=== PATIENT | male | born 1960 | race Caucasian/White ===

== ENCOUNTER 2018-06-24 07:46 | Day surgery (SDC) | payer BC ==
[2018-06-20 12:21] VITALS: BMI 25.0
[~2018-06-24 07:46] MED LIST: LACTATED RINGERS 1,000 ML IV SCH; LIDOCAINE 1% 20 ML VIAL (10MG/ML) FOR IV START INTRADERMA PRN
[2018-06-24] MEDS ORDERED: LACTATED RINGERS 1,000 ML IV ONE (07:57)
[2018-06-24 07:58] VITALS: TEMP 98.1
[2018-06-24] MEDS ORDERED: PROPOFOL 10 MG/ML 20 ML VIAL IV ONE (09:27)
--- NOTE | 2018-06-24 09:35 | P.GSHP ---
History of Present Illness H&P Date: 06/24/18 Chief Complaint: Screening colonoscopy This is a 57-year-old male referred from Dr. Abelardo Mclaughlin. Patient presents today for screening colonoscopy. He denies a significant GI complaints. Past Medical History Past Medical History: No Reported History Additional Past Medical History / Comment(s): HX SF BLOOD CLOT LEG FOLLOWING PLANE RIDE 2014. History of Any Multi-Drug Resistant Organisms: None Reported Past Surgical History: Hernia Repair Additional Past Surgical History / Comment(s): COLONOSCOPY. VASECTOMY. Past Anesthesia/Blood Transfusion Reactions: No Reported Reaction Smoking Status: Current every day smoker - Past Family History Mother Family Medical History: Cancer Additional Family Medical History / Comment(s): COLON CA Medications and Allergies Home Medications Medication Instructions Recorded Confirmed Type Dextroamphetamine/Amphetamine 10 mg PO BID 05/29/14 06/20/18 History [Adderall] Allergies Allergy/AdvReac Type Severity Reaction Status Date / Time No Known Allergies Allergy Verified 06/20/18 11:57 Surgical - Exam Vital Signs Temp Pulse Resp BP Pulse Ox 98.1 F 83 18 144/93 97 06/24/18 07:57 06/24/18 07:57 06/24/18 07:57 06/24/18 07:57 06/24/18 07:57 - General well developed, no distress - Eyes PERRL - ENT normal pinna - Neck no masses - Respiratory normal expansion - Cardiovascular Rhythm: regular - Abdomen Abdomen: soft, non tender Assessment and Plan Assessment: We'll perform screening colonoscopy.
[2018-06-24 09:55] VITALS: RESP 16
--- NOTE | 2018-06-24 09:58 | P.OP ---
Date of Procedure: 06/24/18 Preoperative Diagnosis: Screening colonoscopy Postoperative Diagnosis: Diverticulosis Rectal polyp Left colon polyp Right colon polyp Procedure(s) Performed: Colonoscopy Anesthesia: MAC Surgeon: Pillo Sam Pathology: other (Colon polyps) Condition: stable Disposition: PACU Description of Procedure: The patient's placed on the endoscopy table in the lateral position. He received IV sedation. Digital rectal exam was performed which revealed a few external hemorrhoids. The flexible colonoscope was then placed patient anus and passed throughout the entire colon. The ileocecal valve was visualized. The cecum appeared normal. In the ascending colon was a few scattered diverticula. There was a polyp seen this removed the cold forcep. Scope was then withdrawn and there was further diverticula seen in the ascending and transverse colon. in the descending colon there was more diverticula seen. In the left colon there was another polyp seen this removed with a snare. Scope was then brought back the sigmoid colon and there is extensive diverticular changes. Scope is then brought back the rectum and a polyp was seen was removed with snare. Scope was withdrawn for patient.
[2018-06-24 10:17] VITALS: BP 150/97; PULSE 74
== END 2018-06-24 10:34 | disposition home or self-care (01) ==
LOC: ORWHC2ENDO 07:46
PROVIDERS: ATTEND Surgery
DX: Z12.11 Encounter for screening for malignant neoplasm of colon (principal); D12.4 Benign neoplasm of descending colon; D12.2 Benign neoplasm of ascending colon; D12.8 Benign neoplasm of rectum; F17.200 Nicotine dependence, unspecified, uncomplicated; K64.4 Residual hemorrhoidal skin tags; K57.30 Diverticulosis of large intestine without perforation or abscess without bleeding; F98.8 Other specified behavioral and emotional disorders with onset usually occurring in childhood and adolescence; Z79.899 Other long term (current) drug therapy; Z80.0 Family history of malignant neoplasm of digestive organs
CPT/HCPCS: 88305; 45385; 45380; J2704

== ENCOUNTER → 2019-01-09 | Outpatient (CLI) | payer BC ==
--- NOTE | 2019-01-10 08:29 | XR ---
EXAMINATION TYPE: XR chest 2V DATE OF EXAM: 01/09/2019 COMPARISON: NONE HISTORY: Physical exam, F 17.200 TECHNIQUE: Frontal and lateral views of the chest are obtained. FINDINGS: There are prominent lung volumes. Eventration of right hemidiaphragm is noted. Interstitium is mildly increased. The aorta is dense. Biapical pleural thickening is mild. There is flattening of hemidiaphragms. There is no focal air space opacity, pleural effusion, or pneumothorax seen. The ca rdiac silhouette size is within normal limits. The osseous structures are intact. IMPRESSION: No acute cardiopulmonary process. Correlate for COPD. Additional findings above.
== END | disposition home or self-care (01) ==
LOC: RADXRMAIN 16:46
PROVIDERS: ATTEND Family Medicine
DX: J44.9 Chronic obstructive pulmonary disease, unspecified (principal); I77.89 Other specified disorders of arteries and arterioles; J98.6 Disorders of diaphragm; J92.9 Pleural plaque without asbestos; F17.210 Nicotine dependence, cigarettes, uncomplicated
CPT/HCPCS: 71046

== ENCOUNTER → 2022-02-09 | Outpatient (CLI) | payer BC ==
--- NOTE | 2022-02-09 11:37 | XR ---
Abdomen HISTORY: Abdominal pain Frontal view of the abdomen submitted on 2 images, no comparisons Lung bases are clear. There are air-fluid levels without bowel distention. Probable vascular calcific ations present within the pelvis. Bone mineralization is maintained, degenerative disc changes are pr esent in the visualized spine. No evident pneumoperitoneum. There is some retained fecal debris prese nt within the colon. IMPRESSION: Nonspecific findings, correlate for an right wrist, ileus, follow-up as indicated.
== END | disposition home or self-care (01) ==
LOC: RADXRMAIN 10:51
PROVIDERS: ATTEND Family Medicine
DX: R10.32 Left lower quadrant pain (principal)
CPT/HCPCS: 74018

== ENCOUNTER 2022-02-27 03:15 | Emergency (ER) | payer BC ==
[2022-02-27 03:27] VITALS: TEMP 98.1
[2022-02-27] MEDS ORDERED: MORPHINE SULFATE 4 MG/ML SYRINGE IV STA (03:41)
[2022-02-27] MEDS ORDERED: SODIUM CHLORIDE 0.9% 1,000 ML IV STA (03:41)
[2022-02-27] MEDS ORDERED: ONDANSETRON 4 MG/2 ML VIAL IVP STA (03:41)
--- NOTE | 2022-02-27 03:43 | ED ---
Abdominal Pain HPI - General Chief Complaint: Abdominal Pain Stated Complaint: L. Side Pain Time Seen by Provider: 02/27/22 03:29 Source: patient, RN notes reviewed, old records reviewed Mode of arrival: ambulatory Limitations: no limitations - History of Present Illness Initial Comments: This is a 61-year-old male to the emergency department for evaluation presented today for evaluation of multiple complaints here abdominal pain and constipation left lower quadrant abdominal pain. Patient does have history of colonoscopy relatively normal. No significant surgical history no travel history or sick contacts patient is been on about regimen for constipation with adequate success. MD Complaint: abdominal pain -: week(s) Location: LLQ, L flank Radiation: LLQ, L flank Migration to: suprapubic Severity: moderate Severity scale (1-10): 7 Consistency: intermittent, colicky Improves With: nothing Worsens With: nothing Associated Symptoms: nausea Treatments Prior to Arrival: other (0) - Related Data Home Medications Medication Instructions Recorded Confirmed Dextroamphetamine/Amphetamine 10 mg PO BID 05/29/14 06/20/18 [Adderall] Allergies Allergy/AdvReac Type Severity Reaction Status Date / Time No Known Allergies Allergy Verified 02/27/22 03:27 Review of Systems ROS Statement: Those systems with pertinent positive or pertinent negative responses have been documented in the HPI. ROS Other: All systems not noted in ROS Statement are negative. Past Medical History Past Medical History: No Reported History Additional Past Medical History / Comment(s): HX SF BLOOD CLOT LEG FOLLOWING PLANE RIDE 2014. History of Any Multi-Drug Resistant Organisms: None Reported Past Surgical History: Hernia Repair Additional Past Surgical History / Comment(s): COLONOSCOPY. VASECTOMY. Past Anesthesia/Blood Transfusion Reactions: No Reported Reaction Past Psychological History: ADD/ADHD Smoking Status: Never smoker Past Alcohol Use History: Occasional Past Drug Use History: None Reported - Past Family History Mother Family Medical History: Cancer Additional Family Medical History / Comment(s): COLON CA General Exam Limitations: no limitations General appearance: alert, in no apparent distress Head exam: Present: atraumatic, normocephalic, normal inspection Eye exam: Present: normal appearance, PERRL, EOMI. Absent: scleral icterus, conjunctival injection, periorbital swelling ENT exam: Present: normal exam, mucous membranes moist Neck exam: Present: normal inspection. Absent: tenderness, meningismus, lymphadenopathy Respiratory exam: Present: normal lung sounds bilaterally. Absent: respiratory distress, wheezes, rales, rhonchi, stridor Cardiovascular Exam: Present: regular rate, normal rhythm, normal heart sounds. Absent: systolic murmur, diastolic murmur, rubs, gallop, clicks GI/Abdominal exam: Present: soft, normal bowel sounds. Absent: distended, tenderness, guarding, rebound, rigid Extremities exam: Present: normal inspection, full ROM, normal capillary refill. Absent: tenderness, pedal edema, joint swelling, calf tenderness Back exam: Present: normal inspection Neurological exam: Present: alert, oriented X3, CN II-XII intact Psychiatric exam: Present: normal affect, normal mood Skin exam: Present: warm, dry, intact, normal color. Absent: rash Course Vital Signs 02/27/22 02/27/22 03:25 05:04 Temperature 98.1 F Pulse Rate 79 70 Respiratory 18 17 Rate Blood Pressure 162/98 145/93 O2 Sat by Pulse 98 98 Oximetry - Reevaluation(s) Reevaluation #1: 02/27/22 06:45 Medical record is reviewed Reevaluation #2: 02/27/22 06:45 Specific change in symptoms here in the ER Reevaluation #3: 02/27/22 06:45 Patient informed results and questions answered Medical Decision Making - Medical Decision Making 61 male to the emergency department for evaluation of abdominal pain with difficulty with bowel movements. Patient has normal computed tomography scan with no significant fecal retention, will stop all regiment. Patient to continue to follow-up with colonoscopy as an outpatient - Lab Data Result diagrams: 02/27/22 03:59 02/27/22 03:59 Lab Results 02/27/22 02/27/22 02/27/22 Range/Units 03:59 03:59 03:59 WBC 5.4 (3.8-10.6) k/uL RBC 5.31 (4.30-5.90) m/uL Hgb 16.1 (13.0-17.5) gm/dL Hct 46.9 (39.0-53.0) % MCV 88.4 (80.0-100.0) fL MCH 30.3 (25.0-35.0) pg MCHC 34.3 (31.0-37.0) g/dL RDW 12.8 (11.5-15.5) % Plt Count 175 (150-450) k/uL MPV 8.5 Neutrophils % 56 % Lymphocytes % 29 % Monocytes % 5 % Eosinophils % 6 % Basophils % 1 % Neutrophils # 3.0 (1.3-7.7) k/uL Lymphocytes # 1.6 (1.0-4.8) k/uL Monocytes # 0.3 (0-1.0) k/uL Eosinophils # 0.3 (0-0.7) k/uL Basophils # 0.0 (0-0.2) k/uL PT 10.9 (9.0-12.0) sec INR 1.0 (<1.2) APTT 23.1 (22.0-30.0) sec Sodium 137 (137-145) mmol/L Potassium 4.4 (3.5-5.1) mmol/L Chloride 102 (98-107) mmol/L Carbon Dioxide 25 (22-30) mmol/L Anion Gap 10 mmol/L BUN 15 (9-20) mg/dL Creatinine 0.91 (0.66-1.25) mg/dL Est GFR (CKD-EPI)AfAm >90 (>60 ml/min/1.73 sqM) Est GFR (CKD-EPI)NonAf >90 (>60 ml/min/1.73 sqM) Glucose 115 H (74-99) mg/dL Plasma Lactic Acid Arturo (0.7-2.0) mmol/L Calcium 9.4 (8.4-10.2) mg/dL Total Bilirubin 0.6 (0.2-1.3) mg/dL AST 33 (17-59) U/L ALT 33 (4-49) U/L Alkaline Phosphatase 77 (38-126) U/L Total Protein 7.3 (6.3-8.2) g/dL Albumin 4.4 (3.5-5.0) g/dL Amylase 58 (30-110) U/L Lipase 120 (23-300) U/L 02/27/22 Range/Units 03:59 WBC (3.8-10.6) k/uL RBC (4.30-5.90) m/uL Hgb (13.0-17.5) gm/dL Hct (39.0-53.0) % MCV (80.0-100.0) fL MCH (25.0-35.0) pg MCHC (31.0-37.0) g/dL RDW (11.5-15.5) % Plt Count (150-450) k/uL MPV Neutrophils % % Lymphocytes % % Monocytes % % Eosinophils % % Basophils % % Neutrophils # (1.3-7.7) k/uL Lymphocytes # (1.0-4.8) k/uL Monocytes # (0-1.0) k/uL Eosinophils # (0-0.7) k/uL Basophils # (0-0.2) k/uL PT (9.0-12.0) sec INR (<1.2) APTT (22.0-30.0) sec Sodium (137-145) mmol/L Potassium (3.5-5.1) mmol/L Chloride (98-107) mmol/L Carbon Dioxide (22-30) mmol/L Anion Gap mmol/L BUN (9-20) mg/dL Creatinine (0.66-1.25) mg/dL Est GFR (CKD-EPI)AfAm (>60 ml/min/1.73 sqM) Est GFR (CKD-EPI)NonAf (>60 ml/min/1.73 sqM) Glucose (74-99) mg/dL Plasma Lactic Acid Arturo 1.0 (0.7-2.0) mmol/L Calcium (8.4-10.2) mg/dL Total Bilirubin (0.2-1.3) mg/dL AST (17-59) U/L ALT (4-49) U/L Alkaline Phosphatase (38-126) U/L Total Protein (6.3-8.2) g/dL Albumin (3.5-5.0) g/dL Amylase (30-110) U/L Lipase (23-300) U/L - Radiology Data Radiology results: report reviewed (CT of the abdomen and pelvis is negative for acute disease), image reviewed Disposition Clinical Impression: Abdominal pain Disposition: HOME SELF-CARE Condition: Good Instructions (If sedation given, give patient instructions): Abdominal Pain (ED) Is patient prescribed a controlled substance at d/c from ED?: No Referrals: Abelardo Mclaughlin DO [Primary Care Provider] - 1-2 days Time of Disposition: 05:15
[2022-02-27 04:26] LABS: Basophils % (A) 1 %; Eosinophils # (A) 0.3 k/uL (0-0.7); Eosinophils % (A) 6 %; HCT 46.9 % (39.0-53.0); HGB 16.1 gm/dL (13.0-17.5); Lymphocytes # (A) 1.6 k/uL (1.0-4.8); Lymphocytes % (A) 29 %; MCH 30.3 pg (25.0-35.0); MCHC 34.3 g/dL (31.0-37.0); MCV 88.4 fL (80.0-100.0); Mean Platelet Volume 8.5; Monocytes # (A) 0.3 k/uL (0-1.0); Monocytes % (A) 5 %; Neutrophils % (A) 56 %; Platelet Count 175 k/uL (150-450); RBC 5.31 m/uL (4.30-5.90); RDW 12.8 % (11.5-15.5); WBC 5.4 k/uL (3.8-10.6)
[2022-02-27 04:30] LABS: Partial Thromboplastin Time 23.1 sec (22.0-30.0); Prothrombin Time 10.9 sec (9.0-12.0)
[2022-02-27 04:34] LABS: ALT 33 U/L (4-49); AST 33 U/L (17-59); African American GFR (CKD) >90 (>60 ml/min/1.73 sqM); Albumin 4.4 g/dL (3.5-5.0); Alkaline Phosphatase 77 U/L (38-126); Amylase 58 U/L (30-110); Anion Gap 10 mmol/L; Blood Urea Nitrogen 15 mg/dL (9-20); Calcium 9.4 mg/dL (8.4-10.2); Carbon Dioxide 25 mmol/L (22-30); Chloride 102 mmol/L (98-107); Glucose 115 mg/dL (74-99); Lipase 120 U/L (23-300); Non-African American GFR(CKD) >90 (>60 ml/min/1.73 sqM); Potassium 4.4 mmol/L (3.5-5.1); Sodium 137 mmol/L (137-145); Total Bilirubin 0.6 mg/dL (0.2-1.3); Total Protein 7.3 g/dL (6.3-8.2)
[2022-02-27 05:05] VITALS: BP 145/93; PULSE 70; RESP 17
--- NOTE | 2022-02-27 05:15 | CT ---
EXAMINATION TYPE: CT abdomen pelvis w con DATE OF EXAM: 02/27/2022 COMPARISON: None HISTORY: lt side abd pain, dealing w/ constipation x1 month, no BM x5 days. CT DLP: 734.8 mGycm Automated exposure control for dose reduction was used. CONTRAST: Performed with IV Contrast, patient injected with 100 mL of Isovue 300. Images obtained from the diaphragm to the floor the pelvis with IV contrast. Lung bases are clear. No pleural effusion. Heart size is normal. No pericardial effusion. Liver splee n and stomach appear intact. There is 1 cm cyst in the left lobe of the liver. There is no pancreatic mass. Gallbladder is intact. The bowel loops are not dilated. There is no adrenal mass. Kidneys have normal size. No hydronephrosis. Ureters are not dilated. No re troperitoneal adenopathy. There is normal contrast opacification of the kidneys. Delayed images show normal renal excretion. No retroperitoneal adenopathy. The bladder distends smoothly. No inguinal her mihaela. There are sigmoid diverticula. No diverticulitis. Appendix is posterior and appears normal. Ther e is 1 cm cortical cyst medial left kidney. There is no mesenteric edema. No ascites or free air. No sign of a bowel obstruction. The lumbar vert ebra appear intact. There is narrowing at L4-5 disc space with vacuum disc and spur formation. The nikhil ny pelvis is intact. The hip joints are intact. IMPRESSION: Normal appendix. No evidence of acute abdomen and pelvis. No significant fecal retained material.
== END 2022-02-27 05:31 | disposition home or self-care (01) ==
LOC: EC 03:15
DX: R10.32 Left lower quadrant pain (principal)
CPT/HCPCS: 36415; 80053; 82150; 83605; 83690; 85025; 85610; 85730; 74177; 99284; 96374; 96375; 96361; J2270; J2405; Q9967

== ENCOUNTER 2022-03-24 06:49 | Inpatient (IN) | payer BC ==
[2022-03-22 15:42] VITALS: BMI 19.5
[2022-03-24] MEDS ORDERED: LIDOCAINE 2% INJ 20 MG/ML (2 ML VIAL) ONE (07:43)
[2022-03-24] MEDS ORDERED: MIDAZOLAM 2 MG/2 ML VIAL ONE (07:43)
[2022-03-24] MEDS ORDERED: PROPOFOL 10 MG/ML 20 ML VIAL IV ONE (07:43)
[2022-03-24] MEDS ORDERED: fentaNYL (PF) 50 MCG/ML 2 ML AMP ONE (07:43)
--- NOTE | 2022-03-24 08:01 | P.PCN ---
Date of Procedure: 03/24/22 Procedure(s) Performed: Brief history: Patient is a pleasant 61-year-old white male scheduled for an elective upper endoscopy as well as colonoscopy as a part of evaluation of GERD and prior history of colon polyps. His last colonoscopy was 4 years ago. Procedure performed: Esophagogastroduodenoscopy with biopsy Colonoscopy Preoperative diagnosis: GERD History of colon polyps Anesthesia: MAC Procedure: After informed consent was obtained from the patient was brought into the endoscopy unit and IV sedation was administered by anesthesia under continuous monitoring. Initially upper endoscopy was done. The Olympus GF 160 video endoscope was inserted inserted into the mouth and esophagus intubated without any difficulty and was gradually advanced into the stomach and duodenum and carefully examined. The bulb and second part of the duodenum appeared normal. The scope was then withdrawn into the stomach adequately insufflated with air and upon careful examination the antrum had mild diffuse gastritis and biopsies were done from this area. The body, cardia and fundus appeared normal. The scope was then withdrawn into the esophagus. The GE junction was located at 40 cm to the incisors. Small sliding Hiatal hernia noted. There was a short segment of Tim's esophagus extending 3-4 mm proximal to the GE junction which was biopsied. Rest of the esophagus appeared normal. Patient tolerated the procedure well. At this time the patient continued to remain sedation. Initial digital rectal examination was normal. Olympus CF 160 video colonoscope was then inserted into the rectum and gradually advanced to the sigmoid colon the procedure was terminated because of extremely poor prep. Scattered sigmoid diverticula seen. Impression: 1. Upper endoscopy revealed mild antral gastritis, small hiatal hernia and short segment Tim's esophagus. 2. Colonoscopy terminated because of extremely poor prep. Recommendations: Findings of this examination were discussed with the patient as well as his family. He was advised to follow with the biopsy results. He will be rescheduled for a repeat colonoscopy in 2-3 weeks.
[2022-03-24] MEDS ORDERED: HYDROmorphone 0.5 MG/0.5 ML SYRINGE IVP ONE (08:27)
[2022-03-24] MEDS ORDERED: hydrALAZINE HCL 20 MG/ML 1 ML VIAL ONE (08:57)
[2022-03-24] MEDS ORDERED: LACTATED RINGERS 1,000 ML IV ONE (09:15)
[2022-03-24] MEDS ORDERED: IBUPROFEN 800 MG TAB PO PRN (13:52)
[2022-03-24] MEDS ORDERED: ALPRAZolam 0.25 MG TAB PO PRN (13:54)
[2022-03-24] MEDS ORDERED: TEMAZEPAM 15 MG CAP PO PRN (13:54)
[2022-03-24] MEDS ORDERED: RX INFO: IV CONTRAST WAS GIVEN 1 EACH MISC MISCELLANE PRN (13:56)
[2022-03-24] MEDS: HYDROmorphone 0.5 MG/0.5 ML SYRINGE IVP PRN ×2 (14:26→21:04)
[2022-03-24] MEDS: PANTOPRAZOLE 40 MG/10 ML VIAL IVP SCH ×2 (16:22→19:55)
[2022-03-24] MEDS: SODIUM CHLORIDE 0.9% 1,000 ML IV SCH (16:22)
--- NOTE | 2022-03-24 18:41 | CT ---
EXAMINATION TYPE: CT brain wo con DATE OF EXAM: 03/24/2022 COMPARISON: None HISTORY: Headache, weight loss. CT DLP: 1162.8 mGycm Automated exposure control for dose reduction was used. Images of the brain obtained without contrast. Ventricles of normal size. There is no mass effect or midline shift. No sign of intracranial hemorrha ge. Calvarium is intact. The skull base is intact. There is normal aeration of the mastoid sinuses. IMPRESSION: Normal unenhanced head CT scan.
--- NOTE | 2022-03-24 18:49 | CT ---
EXAMINATION TYPE: CT chest w con DATE OF EXAM: 03/24/2022 COMPARISON: None HISTORY: Weight loss and abdomen pain. CT DLP: 223.0 mGycm Automated exposure control for dose reduction was used. CONTRAST: Performed with IV Contrast, patient injected with 100cc mL of Isovue 300. Images obtained from the diaphragm to the thoracic inlet with no contrast. There is diffuse bullous pulmonary emphysema. There is flattening of the diaphragm. Heart size is nor mal. No pericardial effusion. There is some focal pleural thickening measuring 2 cm in the posterior right upper lobe. There are en larged mediastinal multiple lymph nodes and right bronchial lymph nodes that measure up to 2.7 cm. Th oracic aorta is intact. No evidence of dissection. Ascending aorta measures 4 cm. No filling defect seen in the pulmonary arteries. The thoracic spine is intact. No compression fracture. There is mild degenerative spurring in the tho racic spine. The sternum is intact. No rib fracture seen. There is some mild reticular nodular densit y at the right lung apex. There is noncalcified 7 mm nodular density medial right upper lobe near the lung apex. IMPRESSION: Bullous pulmonary emphysema. Mediastinal and right bronchial adenopathy. Tumor should be considered. Nonspecific small noncalcified nodule right upper lobe. Irregular pleural thickening posterior right upper lobe is likely scarring.
--- NOTE | 2022-03-24 19:23 | MR ---
EXAMINATION TYPE: MR lumbar spine wo/w con DATE OF EXAM: 03/24/2022 COMPARISON: HISTORY: Low back pain, weight loss CONTRAST: Standard multiplanar, multisequence MRI departmental protocol images were obtained without contrast a nd with 6.5 mL intravenous Gadavist gadolinium contrast. The lumbar vertebrae have normal alignment. There is degenerative disc space narrowing at L4-5 and L5 -S1. No lumbar compression fracture. No evidence of spinal stenosis. There is developmentally adequat e spinal canal. The lumbar neural foramina are fairly well maintained. There is no lumbar paraspinal mass. No pathologic enhancement. The sacroiliac joints are intact IMPRESSION: Spondylotic changes in the lower lumbar spine. No spinal stenosis. No compression fracture. No eviden ce for metastatic disease.
[2022-03-24] MEDS: HEPARIN SODIUM,PORCINE/PF 5,000 UNIT/0.5 ML SYRINGE SQ SCH (19:56)
--- NOTE | 2022-03-25 00:42 | HP ---
HISTORY AND PHYSICAL CHIEF COMPLAINTS: Severe abdominal pain, back pain and as well as inability to keep food down, nausea and as well as weight loss of about 40 pounds. HISTORY OF PRESENT ILLNESS: This is a 69-year-old gentleman with a past medical history of multiple medical problems including DVT, being followed by Dr. Mclaughlin in the outpatient setting, was not feeling well over the past several weeks. Apparently, the patient is losing weight. The patient unable to keep anything down. The patient was extremely weak and the patient is apparently only up and about 2 hours a day. Because of the pain, he is lying down. The patient is also concerned the fact that his mother had colon cancer and colonoscopy could not be done and finally on direct exploratory laparotomy, the colon cancer spread all over her body and the patient's mother at the young age of 55. Currently, Dr. Pelletier has performed EGD, and colonoscopy could not be completed because of the stool and the patient is being admitted to further evaluation of above- mentioned multiple medical problems and failure of outpatient treatment at this time. There is no history of any fever, rigors, or chills at this time. PAST MEDICAL HISTORY: History of DVT. The rest of the history and chart is reviewed. HOME MEDICATIONS: Reviewed include Motrin. ALLERGIES: None. FAMILY HISTORY: Colon cancer as mentioned earlier. SOCIAL HISTORY: Previous history of smoking. Occasional alcohol intake. REVIEW OF SYSTEM: A 14-point review of systems is negative except as mentioned earlier. PHYSICAL EXAMINATION: VITAL SIGNS: Pulse 76, blood pressure 117/70, respirations 16. HEENT: Conjunctivae normal. Oral mucosa moist. NECK: No JVD. CARDIOVASCULAR: S1, S2. RESPIRATIONS: Clear to auscultation. ABDOMEN: Soft. Mild diffuse discomfort felt. No guarding. No rigidity. No ascites. LEGS: No edema. No swelling. NERVOUS SYSTEM: No focal deficits. SKIN: : No ulcer, rash, bleeding. JOINTS: No active deforming arthropathy. LABS: C-reactive protein is less than 5. Other labs are awaited. ASSESSMENT: 1. Diffuse abdominal pain, back pain and weight loss, rule out metastatic malignancy. 2. Failure of outpatient treatment. 3. Status post incomplete colonoscopy. 4. Family history of early age colon cancer. 5. History of deep venous thrombosis. 6. History of nicotine dependence. 7. History of attention-deficit disorder, attention deficit hyperactivity disorder. 8. Significant weight loss recently. RECOMMENDATIONS AND DISCUSSION: This is a 61-year-old gentleman, has multiple complex medical issues as mentioned earlier. The patient has taken outpatient treatment and has failed outpatient treatment. A colonoscopy also could not be done. This patient requires further evaluation and treatment to avoid further complications and to elucidate underlying pathology, so this can only be done with an inpatient hospitalization on an expedited manner according to my professional opinion. So, this patient requires a full admission lasting for more than 24 hours. Please also note, there is significant weight loss and significant pain and associated morbidity. The patient already had a history of DVT. The patient is at high risk of recurrent DVTs and other complications also. Because of all the above-mentioned issues, I am going to order a full bone scan to rule out the possibility of any METS and also MRI of the back to rule out any possibility of any metastatic malignancy or even severe DJD. Otherwise, symptomatic treatment is ordered. See the chart for details and I have had a detailed discussion with the patient and family. All the questions answered. As mentioned earlier, the young age at which the patient's mother also had a colonoscopy is also notable. We will obtain either a continued consultation with Gastroenterology or Surgery regarding the availability to obtain a full colonoscopy after a thorough preparation. Once again, all these above matters could only be done as an inpatient, so please note that this patient requires a full inpatient admission. If you have any questions, please give me a call. Once again, prognosis guarded. A copy of this dictation is being forwarded to Dr. Mclaughlin, who is the primary physician. [email or web address] / IJN: [id number] /
[2022-03-25] MEDS: HYDROmorphone 0.5 MG/0.5 ML SYRINGE IVP PRN ×2 (03:03→12:54)
[2022-03-25] MEDS: SODIUM CHLORIDE 0.9% 1,000 ML IV SCH ×2 (03:25→17:34)
[2022-03-25] MEDS: HYDROcodone/APAP 5-325MG 1 EACH TAB PO PRN ×2 (08:13→16:49)
[2022-03-25] MEDS: PANTOPRAZOLE 40 MG/10 ML VIAL IVP SCH ×2 (08:14→20:28)
[2022-03-25] MEDS: HEPARIN SODIUM,PORCINE/PF 5,000 UNIT/0.5 ML SYRINGE SQ SCH ×2 (08:15→20:28)
[2022-03-25] MEDS: LACTATED RINGERS 1,000 ML IV SCH (08:19)
[2022-03-25 08:42] LABS: Basophils # (A) 0.05 X 10*3/uL (0.00-0.10); Basophils % (A) 0.9 %; Eosinophils # (A) 0.21 X 10*3/uL (0.04-0.35); Eosinophils % (A) 3.7 %; HCT 40.7 % (39.6-50.0); HGB 13.9 g/dL (13.0-17.0); Immature Grans, Automated 0.2 %; Lymphocytes # (A) 1.88 X 10*3/uL (0.90-5.00); Lymphocytes % (A) 33.4 %; MCHC 34.2 g/dL (32.0-37.0); MCV 87.7 fL (80.0-97.0); Mean Platelet Volume 11.6 fL (9.5-12.2); Monocytes # (A) 0.46 X 10*3/uL (0.20-1.00); Monocytes % (A) 8.2 %; NRBC Per 100 WBC 0 /100 WBCS (0.0-0.0); Neutrophils # (A) 3.02 X 10*3/uL (1.80-7.70); Neutrophils % (A) 53.6 %; Platelet Count 168 X 10*3/uL (140-440); RBC 4.64 X 10*6/uL (4.40-5.60); RDW 12.6 % (11.5-14.5); WBC 5.63 X 10*3/uL (4.50-10.00)
[2022-03-25 08:45] LABS: African American GFR (CKD) 107.2 (60.0-200.0); Albumin 3.5 g/dL (3.8-4.9); Albumin/Globulin Ratio 1.46 (1.60-3.17); Anion Gap 8.3 mmol/L (10.00-18.00); BUN/Creat Ratio 15.89 Ratio (12.00-20.00); Blood Urea Nitrogen 14.3 mg/dL (9.0-27.0); Carbon Dioxide 26.7 mmol/L (20.0-27.5); Globulin 2.4 g/dL (1.6-3.3); Non-African American GFR(CKD) 92.5 (60.0-200.0); Potassium 4.5 mmol/L (3.5-5.5); Total Bilirubin 0.6 mg/dL (0.30-1.20); Total Protein 5.9 g/dL (6.2-8.2)
--- NOTE | 2022-03-25 09:20 | US ---
EXAMINATION TYPE: US abdomen complete DATE OF EXAM: 03/25/2022 COMPARISON: NONE CLINICAL HISTORY: abdominal pain, left flank pain and lower abdomen pain TECHNIQUE: Multiple sonographic images of the abdomen are obtained. FINDINGS: EXAM MEASUREMENTS: Liver Length: 15.3 cm Gallbladder Wall: 0.24 cm CBD: 0.46-0.70 cm Spleen: 8.4 cm Right Kidney: 10.2 x 3.9 x 6.1 cm Left Kidney: 10.4 x 4.2 x 4.1 cm Pancreas: Tail obscured by overlying bowel gas Liver: Small anechoic cyst in left lobe 1.0x 1.1 x 1.1cm. Otherwise unremarkable Gallbladder: wnl Evidence for sonographic Boswell's sign: No CBD: Slightly dilated at louie hepatis, tapering near pancreas to normal limits Spleen: wnl Right Kidney: wnl Left Kidney: Two echogenic foci present inferior pole 3mm and 3mm. Upper IVC: wnl Abd Aorta: Atherosclerotic changes distally. The liver is homogenous. The intrahepatic portion of the IVC and proximal abdominal aorta are within normal limits. There is no evidence of cholelithiasis. The visualized portions of the pancreas are homogenous. The spleen is unremarkable. Kidneys are symmetric and free of hydronephrosis. No gavino l lesions are seen. IMPRESSION: 1. No evidence for acute intra-abdominal process. 2. Nonobstructing left renal calculi.
[2022-03-25 11:37] LABS: Alpha Fetoprotein, Tumor Mkr 2.2 ng/mL (0.00-7.90); Carcinoembryonic Antigen 1.5 ng/mL (0.0-4.9)
--- NOTE | 2022-03-25 12:46 | NM ---
EXAMINATION TYPE: NM bone scan whole body DATE OF EXAM: 03/25/2022 12:15 PM CLINICAL INDICATION:Male, 61 years old with history of lower back pain, weight loss; COMPARISON: CT abdomen pelvis 02/27/2022 TECHNIQUE: Intravenous administration 23.1 mCi Tc 99m MDP followed by multiple scintigraphic images o f the appendicular and axial skeleton. Additionally, small field of view planar anterior and posterio r images of the thorax and abdomen and pelvis were obtained. Images acquired 3.25 hours post injection. FINDINGS: No abnormal uptake is identified within the appendicular or axial skeleton to suggest metastatic dise ase. There is increased uptake within the bilateral shoulder, sternoclavicular, and sacroiliac joints con sistent with degenerative changes. No other photopenic areas or areas of increased activity are ident ified. Physiologic radiotracer activity is demonstrated in the kidneys and bladder. IMPRESSION: Nothing to suggest metastatic disease. No evidence of fracture.
--- NOTE | 2022-03-25 13:11 | P.GSCN ---
History of Present Illness Consult date: 03/25/22 History of present illness: Patient reports feeling L from hollowing, over 1 month ago. He is developed persistent bandlike sensation right upper quadrant to left upper quadrant with burning sensation along the left flank as well. He is also being evaluated for metastatic bone disease. Patient comes strong family history of colon cancer in both parents. Attempted colonoscopy was unsuccessful as patient was able unable to tolerate prep. Reports eating or drinking anything exacerbate similar bandlike pain. He has intolerance to eggs fatty greasy foods. Ultrasound independent review without large gallstones. CT of the abdomen and pelvis reviewed February 2022 with moderate redundant sigmoid colon including hepatic flexures. Questionable internal hernia of the left upper quadrant. This is my independent interpretation. Agree with HIDA scan. Overall clinical suspicion of gallbladder disorder described with chronic cholecystitis. In the interim, advance to full liquid diet for more options of beverages that he may ingest. Cholecystectomy also briefly reviewed. Will need recent cardiac workup on record. Past Medical History Past Medical History: Deep Vein Thrombosis (DVT) Additional Past Medical History / Comment(s): having severe abd pain-has had 20lb wt loss in 2 weeks,freq diarrhea was having constipation, HX SF BLOOD CLOT LEG FOLLOWING PLANE RIDE 2014. History of Any Multi-Drug Resistant Organisms: None Reported Past Surgical History: Hernia Repair Additional Past Surgical History / Comment(s): COLONOSCOPY. VASECTOMY. Past Anesthesia/Blood Transfusion Reactions: No Reported Reaction Past Psychological History: ADD/ADHD Smoking Status: Former smoker Past Alcohol Use History: Occasional Additional Past Alcohol Use History / Comment(s): SMOKES 1/4 PPD (WAS 1 PPD), SINCE 1998,quit smoking July 2021 Past Drug Use History: None Reported - Past Family History Mother Family Medical History: Cancer Additional Family Medical History / Comment(s): COLON CA Medications and Allergies Home Medications Medication Instructions Recorded Confirmed Type Ibuprofen [Motrin] 800 mg PO Q8H PRN 03/22/22 03/24/22 History Allergies Allergy/AdvReac Type Severity Reaction Status Date / Time No Known Allergies Allergy Verified 03/24/22 07:23 Surgical - Exam Vital Signs Temp Pulse Resp BP Pulse Ox 98.6 F 111 H 18 158/102 97 03/24/22 07:10 03/24/22 07:10 03/24/22 07:10 03/24/22 07:10 03/24/22 07:10 Results - Labs 03/25/22 05:24 03/25/22 05:24 Abnormal Lab Results - Last 24 Hours (Table) 03/25/22 Range/Units 05:24 Anion Gap 8.30 L (10.00-18.00) mmol/L Total Protein 5.9 L (6.2-8.2) g/dL Albumin 3.5 L (3.8-4.9) g/dL Albumin/Globulin Ratio 1.46 L (1.60-3.17) g/dL Diabetes panel 03/25/22 Range/Units 05:24 Sodium 139 (135-145) mmol/L Potassium 4.5 (3.5-5.5) mmol/L Chloride 104 (96-109) mmol/L Carbon Dioxide 26.7 (20.0-27.5) mmol/L BUN 14.3 (9.0-27.0) mg/dL Creatinine 0.9 (0.6-1.5) mg/dL Glucose 79 (70-110) mg/dL Calcium 9.0 (8.7-10.3) mg/dL AST 19 (14-35) U/L ALT 24 (10-49) U/L Alkaline Phosphatase 65 (41-126) U/L Total Protein 5.9 L (6.2-8.2) g/dL Albumin 3.5 L (3.8-4.9) g/dL Calcium panel 03/25/22 Range/Units 05:24 Calcium 9.0 (8.7-10.3) mg/dL Albumin 3.5 L (3.8-4.9) g/dL Pituitary panel 03/25/22 Range/Units 05:24 Sodium 139 (135-145) mmol/L Potassium 4.5 (3.5-5.5) mmol/L Chloride 104 (96-109) mmol/L Carbon Dioxide 26.7 (20.0-27.5) mmol/L BUN 14.3 (9.0-27.0) mg/dL Creatinine 0.9 (0.6-1.5) mg/dL Glucose 79 (70-110) mg/dL Calcium 9.0 (8.7-10.3) mg/dL Adrenal panel 03/25/22 Range/Units 05:24 Sodium 139 (135-145) mmol/L Potassium 4.5 (3.5-5.5) mmol/L Chloride 104 (96-109) mmol/L Carbon Dioxide 26.7 (20.0-27.5) mmol/L BUN 14.3 (9.0-27.0) mg/dL Creatinine 0.9 (0.6-1.5) mg/dL Glucose 79 (70-110) mg/dL Calcium 9.0 (8.7-10.3) mg/dL Total Bilirubin 0.60 (0.30-1.20) mg/dL AST 19 (14-35) U/L ALT 24 (10-49) U/L Alkaline Phosphatase 65 (41-126) U/L Total Protein 5.9 L (6.2-8.2) g/dL Albumin 3.5 L (3.8-4.9) g/dL
[2022-03-26] MEDS: HYDROmorphone 0.5 MG/0.5 ML SYRINGE IVP PRN ×4 (03:43→22:35)
--- NOTE | 2022-03-26 04:55 | PN ---
PROGRESS NOTE DATE OF SERVICE: 03/25/2022 SUBJECTIVE: This 61-year-old gentleman admitted with weight loss and severe back pain, is being closely monitored at this time. CAT scan of the chest showed multiple mediastinal lymphadenopathy. Pulmonary consultation has been sought. Surgery has also seen the patient and recommended HIDA scan for possible chronic cholecystitis, and bone scan showed no evidence of an obvious abnormality. There has been no chest pain or palpitation. PHYSICAL EXAM: VITAL SIGNS: Pulse 74, blood pressure 119/70, respirations 16. CHEST: Clear to auscultation. ABDOMEN: Soft. NERVOUS SYSTEM: Nonfocal. LABORATORY DATA: Reviewed. AFP is normal and CEA is also normal. ASSESSMENT: 1. Diffuse abdominal pain and weight loss. Rule out metastatic malignancy. 2. Failure of outpatient treatment. 3. Status post incomplete colonoscopy. 4. Mediastinal adenopathy. 5. Family history of early age colon cancer. 6. Possible chronic cholecystitis. 7. History of deep venous thrombosis. 8. History of nicotine dependence. 9. History of attention-deficit disorder, attention-deficit hyperactivity disorder. 10.Significant weight loss recently. RECOMMENDATIONS: I recommend to continue medications and symptomatic treatment. Otherwise, I would recommend consultation with Dr. Mcmullen regarding the high concern of malignancy. Dr. Goff also will be consulted for possible evaluation for possible lymphadenopathy. Prognosis guarded. Further recommendations to follow. See orders for details. MMODL / IJN: [id number] /
[2022-03-26] MEDS: PANTOPRAZOLE 40 MG/10 ML VIAL IVP SCH ×2 (08:29→20:07)
[2022-03-26] MEDS: HEPARIN SODIUM,PORCINE/PF 5,000 UNIT/0.5 ML SYRINGE SQ SCH ×2 (08:29→20:06)
[2022-03-26] MEDS: SODIUM CHLORIDE 0.9% 1,000 ML IV SCH ×2 (08:34→20:07)
[2022-03-26] MEDS: LACTATED RINGERS 1,000 ML IV SCH (08:34)
[2022-03-26 09:01] LABS: Basophils # (A) 0.06 X 10*3/uL (0.00-0.10); Basophils % (A) 1.2 %; Eosinophils # (A) 0.26 X 10*3/uL (0.04-0.35); HGB 13.8 g/dL (13.0-17.0); Immature Grans, Automated 0.2 %; Lymphocytes % (A) 34.8 %; MCHC 34.5 g/dL (32.0-37.0); Mean Platelet Volume 11.6 fL (9.5-12.2); Monocytes # (A) 0.42 X 10*3/uL (0.20-1.00); Monocytes % (A) 8.1 %; NRBC Per 100 WBC 0 /100 WBCS (0.0-0.0); Neutrophils # (A) 2.62 X 10*3/uL (1.80-7.70); Neutrophils % (A) 50.7 %; Platelet Count 168 X 10*3/uL (140-440); RDW 12.4 % (11.5-14.5); WBC 5.17 X 10*3/uL (4.50-10.00)
[2022-03-26 09:24] LABS: Amorphous Sediment,Urine Moderate /hpf; Appearance,Urine Cloudy (Clear); Bacteria,Urine Rare /hpf; Bilirubin,Urine Negative (Negative); Blood,Urine Negative (Negative); Color,Urine Yellow; Glucose,Urine (UA) Negative (Negative); Ketones,Urine Negative (Negative); Leukocyte Esterase,Urine Negative (Negative); Mucus,Urine Moderate /hpf; Nitrite,Urine Negative (Negative); Protein,Urine Negative (Negative); RBC,Urine 1 /hpf (0-5); Specific Gravity,Urine 1.014 (1.001-1.035); Urobilinogen,Urine <2.0 mg/dL (<2.0); WBC,Urine 3 /hpf (0-5)
[2022-03-26 10:21] LABS: African American GFR (CKD) 107.7 (60.0-200.0); Anion Gap 9.3 mmol/L (10.00-18.00); BUN/Creat Ratio 11.22 Ratio (12.00-20.00); Calcium 9.2 mg/dL (8.7-10.3); Carbon Dioxide 26.2 mmol/L (20.0-27.5); Non-African American GFR(CKD) 92.9 (60.0-200.0); Potassium 4.5 mmol/L (3.5-5.5)
--- NOTE | 2022-03-26 14:07 | P.PN ---
Subjective Progress Note Date: 03/26/22 Overview of the patient's symptoms and clinical findings described. Patient confirms worsening abdominal pain after eating dairy foods or fat containing foods. He is tolerating tomato soup including Mountain Dew. Pain bandlike sensation in upper abdomen. HIDA scan pending. 12-lead EKG obtained with echo for 3 surgical management. Clinical findings consistent with cholecystitis. Tentative cholecystectomy scheduled for tomorrow pending cardiac risk assessment with EKG and and ECHO Objective - Vital Signs Vital signs: Vital Signs Temp 97.7 F 03/26/22 07:30 Pulse 73 03/26/22 08:00 Resp 16 03/26/22 08:00 BP 117/75 03/26/22 07:30 Pulse Ox 97 03/26/22 07:30 FiO2 Intake & Output 03/25/22 03/26/22 03/26/22 18:59 06:59 18:59 Other: Voiding Method Toilet Toilet Toilet # Voids 3 2 - Labs CBC & Chem 7: 03/26/22 06:25 03/26/22 06:25 Labs: Abnormal Lab Results - Last 24 Hours (Table) 03/26/22 03/26/22 Range/Units 06:25 08:35 Anion Gap 9.30 L (10.00-18.00) mmol/L BUN/Creatinine Ratio 11.22 L (12.00-20.00) Ratio Amorphous Sediment Moderate H (None) /hpf Urine Bacteria Rare H (None) /hpf Urine Mucus Moderate H (None) /hpf
--- NOTE | 2022-03-26 14:45 | P.PN ---
Subjective Progress Note Date: 03/26/22 03/26/2022 This is a 61 year old male who was admitted with uncontrolled pain and abdominal pain and being closely monitored. Patient reports to continued pain with weight loss and no real appetite over the last month and getting worse over the last 2 weeks. General surgery following as patient was to undergo colonoscopy with GI although unable to tolerate the bowel prep. Multiple testings ordered and surgery suggesting hida scan to evaluate the gall bladder. Pulmonary consulted for lung findings on CT. Patient is afebrile and tolerating current diet. Will continue to monitor closely and await hida scan. No reports of shortness of breath or chest pains noted. Encouraged increased activity as tolerated. Review of systems: Constitutional: reports of fatigue, no fever, or chills Cardiovascular: No reports of chest pain or palpitations Respiratory: no reports of shortness of breath and cough GI: no reports of nausea, no vomiting, or diarrhea, reports slightly improved appetite : No reports of dysuria or retention Neurovascular: reports of generalized weakness and overall body aches and pain All medications have been reviewed PHYSICAL EXAMINATION: GENERAL: The patient is alert and oriented x4, thin, ill appearing HEENT: Pupils are round and equally reacting to light. EOMI. no scleral icterus. No conjunctival pallor. Normocephalic, atraumatic. No pharyngeal erythema. No thyromegaly. CARDIOVASCULAR: S1 and S2 muffled PULMONARY: diminished breath sounds bilaterally with some scattered rhonchi noted. ABDOMEN: soft. mildly tender. non-distended, normoactive bowel sounds. No palpable organomegaly. MUSCULOSKELETAL: No joint swelling or deformity. EXTREMITIES: No cyanosis, clubbing, or pedal edema. muscle wasting noted NEUROLOGICAL: Gross neurological examination did not reveal any focal deficits. diffuse weakness SKIN: No rashes. Assessment: Diffuse abdominal pain and weight loss, rule out malignancy Failure of outpatient treatment Status post incomplete colonoscopy Mediastinal adenopathy Family history of early age colon cancer Possible chronic cholecystitis History of DVT HIstory of nicotine dependence HIstory of ADHD, ADD Significant weight loss recently GI prophylaxis DVT prophylaxis Full code Plan: Recommend to continue with current medications and management with surgery following. Patient recently underwent outpatient testing and was scheduled to undergo colonoscopy with GI although unable to do prep. Surgery following due to no GI coverage and to order hida scan which is pending. PUlmonary on consult as well for lung findings on chest cT. Patient to continue with current diet and increased activity as tolerated. Recommend repeat labs including amylase and lipase. Due to multiple complex medical issues, prognosis is guarded. The impression and plan of care has been dictated as a scribe by Radha Ramos, nurse practitioner as directed. Dr. Carlo MD I have performed a history and examination and MDM of this patient, discussed the same with the dictator, and will be documented as a scribe. Based on total visit time, I have performed more than 50% of the visit. Any additional findings or plans will be noted. Objective - Vital Signs Vital signs: Vital Signs Temp 97.7 F 03/26/22 07:30 Pulse 73 03/26/22 08:00 Resp 16 03/26/22 08:00 BP 117/75 03/26/22 07:30 Pulse Ox 97 03/26/22 07:30 FiO2 Intake & Output 03/25/22 03/26/22 03/26/22 18:59 06:59 18:59 Other: Voiding Method Toilet Toilet Toilet # Voids 3 2 - Labs CBC & Chem 7: 03/26/22 06:25 03/26/22 06:25 Labs: Abnormal Lab Results - Last 24 Hours (Table) 03/26/22 03/26/22 Range/Units 06:25 08:35 Anion Gap 9.30 L (10.00-18.00) mmol/L BUN/Creatinine Ratio 11.22 L (12.00-20.00) Ratio Amorphous Sediment Moderate H (None) /hpf Urine Bacteria Rare H (None) /hpf Urine Mucus Moderate H (None) /hpf
--- NOTE | 2022-03-26 16:25 | P.CONS ---
History of Present Illness - Reason for Consult Consult date: 03/26/22 malignancy Requesting physician: Pieter Matos - Chief Complaint intractable N/V, weakness, weight loss - History of Present Illness Mr. Butler is a very pleasant 61 yo male with multiple comorbidities including FH of metastatic colon cancer in his mother who is here after having EGD/colonoscopy for intractable nausea, vomiting, weight loss and weakness. He was following up with GI for nausea and vomiting as well as weight loss. EGD/colonoscopy was completed on 03/24/22. He was not able to tolerate prep well. Endoscopy showed gastritis, and poor prep, stomach biopsy obtained, pending. Admitted due to persistent symptoms without known etiology. He has been having abdominal pain, severe, for the past month, associated with nausea. He has had weight loss as he's not able to eat due to the nausea and pain. He eats a few bites and his symptoms worsen. Work up so far includes CT head which was negative, CT chest with mediastinal and right bronchial LAD concerning for tumor and RUL scarring, MRI L spine and bone scan negative for malignancy, and Abd US negative. CBC and CMP normal. States his mother had colon cancer that was found, metastatic on presentation when she went for surgery with diffuse abdominal metastases. She lived with this and was on treatment for about 4 years before passing. Surgery on board. We were consulted for concerns of pos sible malignancy. HIDA scan ordered for tomorrow with the thought that maybe his symptoms are due to gallbladder disease. Past Medical History Past Medical History: Deep Vein Thrombosis (DVT) Additional Past Medical History / Comment(s): having severe abd pain-has had 20lb wt loss in 2 weeks,freq diarrhea was having constipation, HX SF BLOOD CLOT LEG FOLLOWING PLANE RIDE 2014. History of Any Multi-Drug Resistant Organisms: None Reported Past Surgical History: Hernia Repair Additional Past Surgical History / Comment(s): COLONOSCOPY. VASECTOMY. Past Anesthesia/Blood Transfusion Reactions: No Reported Reaction Past Psychological History: ADD/ADHD Smoking Status: Former smoker Past Alcohol Use History: Occasional Additional Past Alcohol Use History / Comment(s): SMOKES 1/4 PPD (WAS 1 PPD), SINCE 1998,quit smoking July 2021 Past Drug Use History: None Reported - Past Family History Mother Family Medical History: Cancer Additional Family Medical History / Comment(s): COLON CA Medications and Allergies Home Medications Medication Instructions Recorded Confirmed Type Ibuprofen [Motrin] 800 mg PO Q8H PRN 03/22/22 03/24/22 History Allergies Allergy/AdvReac Type Severity Reaction Status Date / Time No Known Allergies Allergy Verified 03/24/22 07:23 Physical Exam Vitals: Vital Signs Temp Pulse Resp BP Pulse Ox 03/25/22 15:00 98.4 F 70 16 156/84 97 03/25/22 14:00 74 16 03/25/22 08:00 74 16 03/25/22 07:20 98.3 F 74 16 119/75 97 03/25/22 02:01 64 16 03/25/22 01:51 98.1 F 71 17 122/79 97 03/24/22 20:06 98.4 F 72 16 130/83 96 03/24/22 19:55 64 16 Intake and Output 03/25/22 03/25/22 03/25/22 06:59 14:59 22:59 Other: Voiding Method Toilet Toilet # Voids 1 3 Gen.: No acute distress. HEENT: Mucosa moist. Lungs: No respiratory distress. Heart: Regular rate. Abdomen: Soft, currently nontender on the right side however he does have some tenderness in the left side. No palpable masses or organomegaly. Neuro: Alert and oriented 3. Skin: No jaundice. Psych: Appropriate affect. Results CBC & Chem 7: 03/26/22 06:25 03/26/22 06:25 Labs: Abnormal Lab Results - Last 24 Hours (Table) 03/25/22 Range/Units 05:24 Anion Gap 8.30 L (10.00-18.00) mmol/L Total Protein 5.9 L (6.2-8.2) g/dL Albumin 3.5 L (3.8-4.9) g/dL Albumin/Globulin Ratio 1.46 L (1.60-3.17) g/dL CT scan - chest: report reviewed CT Scan - head: report reviewed US - abdomen: report reviewed Assessment and Plan Assessment: 1. Intractable nausea and vomiting 2. Unexplained weight loss 3. Mediastinal LAD 4. gastritis Plan: Mr. Butler is a very pleasant 61 yo male with recent onset weight loss, intractable N/V, and EGD overall unrevealing. Colonoscopy obtained, poor prep. FH of colon cancer found in his mother via laparoscopy with diffuse met's seen on presentation after failing to tolerate colonoscopy. Work up with mediastinal LAD concerning for possible malignancy. Patient states he has had multiple scans which revealed a lung nodule however no obvious source of his abdominal pain. I did not see a CT of the abdomen and pelvis done currently however he mentions possibly having this done in the past. It CT of the abdomen pelvis has not been done, he would benefit from this. Agree with outpatient PET scan for his lung nodule however this will also better characterize his abdominal complaints if continued workup remains unremarkable. Agree with HIDA scan as per surgery recommendations. Agree for outpatient biopsy of his mass by natalie carbajal as planned. Discussed with pt and he is agreeable to the plan. All questions answered.
--- NOTE | 2022-03-26 16:28 | P.CNPUL ---
History of Present Illness Consult date: 03/26/22 Requesting physician: Pieter Matos Reason for consult: other (Abnormal CT of the chest) Chief complaint: Chronic abdominal pain History of present illness: This is a 61-year-old white male with one month history of abdominal pain. Patient describes the pain as a bandlike sensation right upper quadrant and left upper quadrant with burning sensation along the left flank. Patient had extensive workup for his abdominal pain, and so far the workup has been negative for malignancy. Patient also describes significant intolerance to certain foods, CT of the abdomen and pelvis showed moderate redundant sigmoid colon including hepatic hepatic flexures, questionable internal hernia of the left u pper quadrant. HIDA scan is pending. During the workup the patient had a CT of the chest clearly showed COPD, there is also evidence of mediastinal and right bronchial adenopathy with nonspecific findings of a small noncalcified nodule in the right upper lobe/irregular pleural thickening/posterior right upper lobe. Likely scarring. However considering the abnormality in the mediastinum, this c onsult was initiated. Patient has no active pulmonary symptoms today. I did recommend that the patient may eventually need a PET scan on outpatient basis, and if that area is abnormal on the PET scan, may have to be considered for EBUS bronchoscopy pulmonary-[place], the patient has no active pulmonary symptoms whatsoever Review of Systems Constitutional: Weight loss no fever no chills HEENT: Negative Pulmonary: Negative Cardiac: Negative GI: Chronic abdominal pain Genitourinary: Negative Muscular skeletal: Negative Psychiatric: Negative Hematologic: Negative Endocrine: Negative Skin: Negative Past Medical History Past Medical History: Deep Vein Thrombosis (DVT) Additional Past Medical History / Comment(s): having severe abd pain-has had 20lb wt loss in 2 weeks,freq diarrhea was having constipation, HX SF BLOOD CLOT LEG FOLLOWING PLANE RIDE 2014. History of Any Multi-Drug Resistant Organisms: None Reported Past Surgical History: Hernia Repair Additional Past Surgical History / Comment(s): COLONOSCOPY. VASECTOMY. Past Anesthesia/Blood Transfusion Reactions: No Reported Reaction Past Psychological History: ADD/ADHD Smoking Status: Former smoker Past Alcohol Use History: Occasional Additional Past Alcohol Use History / Comment(s): SMOKES 1/4 PPD (WAS 1 PPD), SINCE 1998,quit smoking July 2021 Past Drug Use History: None Reported - Past Family History Mother Family Medical History: Cancer Additional Family Medical History / Comment(s): COLON CA Medications and Allergies Home Medications Medication Instructions Recorded Confirmed Type Ibuprofen [Motrin] 800 mg PO Q8H PRN 03/22/22 03/24/22 History Allergies Allergy/AdvReac Type Severity Reaction Status Date / Time No Known Allergies Allergy Verified 03/24/22 07:23 Physical Exam Vitals: Vital Signs Temp Pulse Resp BP Pulse Ox 03/26/22 15:00 98.6 F 71 16 155/88 98 03/26/22 14:00 73 16 03/26/22 08:00 73 16 03/26/22 07:30 97.7 F 73 16 117/75 97 03/26/22 03:37 98.2 F 79 17 156/97 97 03/26/22 01:36 70 16 03/25/22 20:28 70 16 03/25/22 20:24 98.2 F 66 17 151/79 96 Intake and Output 03/26/22 03/26/22 03/26/22 06:59 14:59 22:59 Other: Voiding Method Toilet Toilet # Voids 2 3 Physical Exam: Revealed a 61-year-old white male in no distress Head: Atraumatic normocephalic HEENT:[Neck is supple.] [No neck masses.] [No thyromegaly.] [No JVD.] Chest: [Clear throughout, no crackles, no rhonchi, no wheezes.] Cardiac Exam: [Normal S1 and S2, no S3 gallop, no murmur.] Abdomen: [Soft, nontender, no megaly, no rebound, no guarding, normal bowel sounds.] Extremities: [No clubbing, no edema, no cyanosis.] Neurological Exam: [No focal neurologic deficit.] Alert oriented 3 Psychiatric: Normal mood affect and normal mental status examination. Skin: No rashes Results - Laboratory Findings CBC and BMP: 03/26/22 06:25 03/26/22 06:25 Abnormal lab findings: Abnormal Labs 03/25/22 03/26/22 03/26/22 05:24 06:25 08:35 Anion Gap 8.30 L 9.30 L BUN/Creatinine Ratio 11.22 L Total Protein 5.9 L Albumin 3.5 L Albumin/Globulin Ratio 1.46 L Amorphous Sediment Moderate H Urine Bacteria Rare H Urine Mucus Moderate H - Diagnostic Findings CT scan - chest: image reviewed (As noted in HPI abnormal mediastinal adenopathy, suspicious.) Assessment and Plan Assessment: Impression: Chronic abdominal pain, exact etiology is not clear, being addressed by surgery and gastroenterology on the case. Abnormal CT of the chest, strongly recommend close follow-up patient will need outpatient PET scan post discharge Needs to follow-up with Dr. Kirkland for EBUS bronchoscopy to be done on outpatient basis Tobacco dependence syndrome Possible chronic cholecystitis Family history of colon cancer Recommendation: Continue present treatment and workup plan We will definitely need outpatient follow-up with our office Needs a PET scan outpatient basis Possible EBUS bronchoscopy based on the PET scan findings We'll continue to follow Time with Patient: Greater than 30
[2022-03-27] MEDS: HYDROmorphone 0.5 MG/0.5 ML SYRINGE IVP PRN ×3 (05:00→21:20)
--- NOTE | 2022-03-27 08:33 | P.PN ---
Subjective Progress Note Date: 03/27/22 This is a 61-year-old white male with one month history of abdominal pain. Patient describes the pain as a bandlike sensation right upper quadrant and left upper quadrant with burning sensation along the left flank. Patient had extensive workup for his abdominal pain, and so far the workup has been negative for malignancy. Patient also describes significant intolerance to certain foods, CT of the abdomen and pelvis showed moderate redundant sigmoid colon including hepatic hepatic flexures, questionable internal hernia of the left upper quadrant. HIDA scan is pending. During the workup the patient had a CT of the chest clearly showed COPD, there is also evidence of mediastinal and right bronchial adenopathy with nonspecific findings of a small noncalcified nodule in the right upper lobe/irregular pleural thickening/posterior right upper lobe. Likely scarring. However considering the abnormality in the mediastinum, this consult was initiated. Patient has no active pulmonary symptoms today. I did recommend that the patient may eventually need a PET scan on outpatient basis, and if that area is abnormal on the PET scan, may have to be considered for EBUS bronchoscopy pulmonary[place], the patient has no active pulmonary symptoms whatsoever The patient is seen today 03/27/2022 in follow-up on the regular medical floor. He is currently resting comfortably in bed. Awake and alert in no acute distress. No shortness of breath, cough or congestion. Maintaining O2 saturations in the 90s on room air. He still having ongoing issues with abdominal discomfort. Plan is for possible cholecystectomy today per surgical services. No new labs today. Continued on cefazolin. Heparin for DVT prophylaxis. 0.9 normal saying at 75 ML's per hour. Objective - Vital Signs Vital signs: Vital Signs Temp 98.4 F 03/27/22 02:33 Pulse 74 03/27/22 02:33 Resp 17 03/27/22 02:33 BP 125/86 03/27/22 02:33 Pulse Ox 97 03/27/22 02:33 FiO2 Intake & Output 03/26/22 03/27/22 03/27/22 18:59 06:59 18:59 Other: Voiding Method Toilet Toilet # Voids 3 2 - Exam GENERAL EXAM: Alert, pleasant 61-year-old male patient on room air, comfortable in no apparent distress. HEAD: Normocephalic. EYES: Normal reaction of pupils, equal size. NOSE: Clear with pink turbinates. THROAT: No erythema or exudates. NECK: No masses, no JVD. CHEST: No chest wall deformity. LUNGS: Equal air entry with no crackles, wheeze, rhonchi or dullness. CVS: S1 and S2 normal with no audible murmur, regular rhythm. ABDOMEN: Tender to palpation. No hepatosplenomegaly, normal bowel sounds, no guarding or rigidity. SPINE: No scoliosis or deformity SKIN: No rashes CENTRAL NERVOUS SYSTEM: No focal deficits, tone is normal in all 4 extremities. EXTREMITIES: There is no peripheral edema. No clubbing, no cyanosis. Peripheral pulses are intact. - Labs CBC & Chem 7: 03/26/22 06:25 03/26/22 06:25 Labs: Abnormal Lab Results - Last 24 Hours (Table) 03/26/22 03/26/22 Range/Units 06:25 08:35 Anion Gap 9.30 L (10.00-18.00) mmol/L BUN/Creatinine Ratio 11.22 L (12.00-20.00) Ratio Amorphous Sediment Moderate H (None) /hpf Urine Bacteria Rare H (None) /hpf Urine Mucus Moderate H (None) /hpf Assessment and Plan Assessment: Chronic abdominal pain, exact etiology is not clear, being addressed by surgery and gastroenterology on the case. Plan is for cholecystectomy today. Abnormal CT of the chest, strongly recommend close follow-up patient will need outpatient PET scan post discharge Tobacco dependence syndrome Possible chronic cholecystitis Family history of colon cancer Plan: The patient was seen and evaluated Stable and on room air Plan is for possible surgical intervention today, cholecystectomy He will need a follow-up in the office for PET scan and EBUS bronchoscopy We'll continue to follow I have personally seen and examined the patient, performed the documentation and the assessment and plan as written. Number of minutes spent on the visit: 10.
[2022-03-27 09:01] LABS: Basophils # (A) 0.05 X 10*3/uL (0.00-0.10); Eosinophils # (A) 0.33 X 10*3/uL (0.04-0.35); Eosinophils % (A) 6.6 %; HCT 41.5 % (39.6-50.0); HGB 14.4 g/dL (13.0-17.0); Immature Grans, Automated 0.2 %; Lymphocytes # (A) 1.65 X 10*3/uL (0.90-5.00); Lymphocytes % (A) 33.1 %; MCH 30.9 pg (27.0-32.0); MCHC 34.7 g/dL (32.0-37.0); MCV 89.1 fL (80.0-97.0); Mean Platelet Volume 12.4 fL (9.5-12.2); NRBC Per 100 WBC 0 /100 WBCS (0.0-0.0); Neutrophils # (A) 2.45 X 10*3/uL (1.80-7.70); Neutrophils % (A) 49.1 %; Platelet Count 177 X 10*3/uL (140-440); RBC 4.66 X 10*6/uL (4.40-5.60); RDW 12.6 % (11.5-14.5); WBC 4.99 X 10*3/uL (4.50-10.00)
[2022-03-27] MEDS: PANTOPRAZOLE 40 MG/10 ML VIAL IVP SCH ×2 (09:10→20:30)
[2022-03-27] MEDS: HEPARIN SODIUM,PORCINE/PF 5,000 UNIT/0.5 ML SYRINGE SQ SCH ×3 (09:10→20:30)
[2022-03-27 09:12] LABS: African American GFR (CKD) 112.5 (60.0-200.0); Anion Gap 7.2 mmol/L (10.00-18.00); Blood Urea Nitrogen 8.8 mg/dL (9.0-27.0); Calcium 9.3 mg/dL (8.7-10.3); Carbon Dioxide 28.8 mmol/L (20.0-27.5); Non-African American GFR(CKD) 97.1 (60.0-200.0); Potassium 4.2 mmol/L (3.5-5.5)
[2022-03-27] MEDS: SODIUM CHLORIDE 0.9% 1,000 ML IV SCH ×2 (09:17→20:34)
--- NOTE | 2022-03-27 10:40 | P.PN ---
Progress Note - Text Spoke to nurse practitioner/Michelle JOHNSON Surgical team canceling cardio consult
[2022-03-27] MEDS ORDERED: DEXAMETHASONE SOD PHOSPHATE 4 MG/ML 1 ML VIAL IV ONE (12:25)
[2022-03-27] MEDS ORDERED: ONDANSETRON 4 MG/2 ML VIAL IVP ONE ×2 (12:25→15:16)
--- NOTE | 2022-03-27 12:50 | NM ---
Nuclear medicine hepatobiliary scan. HISTORY: Pain. DOSAGE: The patient received 8 ounces of Ensure Plus and 5.3 mCi of Technetium 99m Choletec. FINDINGS: There is normal hepatic extraction. The gallbladder is seen by 30 minutes. There is bilia ry to bowel clearance by 45 minutes. Ejection fraction is 7%. IMPRESSION: 1. Abnormal ejection fraction 7% correlate for biliary dyskinesia.
[2022-03-27] MEDS ORDERED: ACETAMINOPHEN TAB 500 MG TAB ONE (14:43)
--- NOTE | 2022-03-27 14:47 | CA ---
Transthoracic Echo Report Name: Atif Butler Age: 61 Gender: M : 1960 Exam Date: 03/27/2022 09:29 Exam Location: [facility] Ht (in): 71 Wt (lb): 143 Ordering Physician: Yamilka Ugalde MD Attending/Referring Phys: Tram DONIS Broadcast Journalist Jasmin Tijerina RDCS Procedure CPT: Indications: Chest Pain Cardiac Hx: Technical Quality: Fair/ No parasternal views Contrast 1: Total Dose (mL): Contrast 2: Total Dose (mL): MEASUREMENTS (Male / Female) Normal Values 2D ECHO LV Diastolic Diameter PLAX 3.8 cm 4.2 - 5.9 / 3.9 - 5.3 cm LV Systolic Diameter PLAX 2.8 cm IVS Diastolic Thickness 1.2 cm 0.6 - 1.0 / 0.6 - 0.9 cm LVPW Diastolic Thickness 1.1 cm 0.6 - 1.0 / 0.6 - 0.9 cm LV Relative Wall Thickness 0.6 LA Volume 24.3 cm??? 18 - 58 / 22 - 52 cm??? DOPPLER AV Peak Velocity 111.0 cm/s AV Peak Gradient 4.9 mmHg AV Mean Velocity 77.7 cm/s AV Mean Gradient 2.8 mmHg AV Velocity Time Integral 21.0 cm LVOT Peak Velocity 84.6 cm/s LVOT Peak Gradient 2.9 mmHg LVOT Velocity Time Integral 15.4 cm MV Area PHT 3.3 cm??? Mitral E Point Velocity 55.8 cm/s Mitral A Point Velocity 63.7 cm/s Mitral E to A Ratio 0.9 MV Deceleration Time 230.4 ms MV E' Velocity 8.7 cm/s Mitral E to MV E' Ratio 6.4 TR Peak Velocity 187.0 cm/s TR Peak Gradient 14.0 mmHg Right Ventricular Systolic Press 19.0 mmHg FINDINGS Left Ventricle Mildly increased left ventricular wall thickness. Normal left ventricular systolic function with no obvious regional wall motion abnormalities. Left ventricular ejection fraction is estimated at 55-60 %. Right Ventricle Normal right ventricular size and function. Right ventricular systolic pressure within normal limits. Right Atrium Normal right atrial size. Left Atrium Normal left atrial size. Mitral Valve Structurally normal mitral valve. No evidence for mitral valve prolapse. No mitral stenosis. Trace to mild mitral regurgitation. Aortic Valve No aortic valve stenosis or regurgitation. Tricuspid Valve Mild tricuspid regurgitation. Pulmonic Valve Structurally normal pulmonic valve. Trace pulmonic regurgitation. Pericardium No pericardial effusion. Aorta Aortic root and proximal ascending aorta not well visualized. CONCLUSIONS Mild LVH with preserved systolic function Previewed by: Dr. Wang Waters MD (Electronically Signed) Final Date: 27 March 2022 14:47
[2022-03-27] MEDS ORDERED: INDOCYANINE GREEN 25 MG VIAL IV STA (14:48)
--- NOTE | 2022-03-27 14:48 | P.PN ---
Subjective Progress Note Date: 03/27/22 CHIEF COMPLAINT: Abdominal pain HISTORY OF PRESENT ILLNESS: The patient is a 61-year-old male presents with history of persistent abdominal pain with severe nausea. He reports intolerance to fatty foods. He reports during the study, he had worsening abdominal pain. ROS: No bowel movements. No fevers or chills. No new chest pain. No productive sputum PHYSICAL EXAM: VITAL SIGNS: Reviewed CONSTITUTIONAL: Well developed and in no acute distress. EYES: Conjuctivae without sclera icterus. Extraocular movements grossly intact. HEAD, EARS, NOSE, THROAT: Moist buccal mucosa. Head is atraumatic, normocephalic. Hears conversational speech. No nasal drainage. RESPIRATORY: Non-labored respirations and equal bilateral excursions. CARDIOVASCULAR: Palpable 2+ radial pulses. ABDOMEN: Left lower quadrant abdominal pain. No gross peritonitis. MUSCULOSKELETAL: No gross deformity of the lower extremities noted. No clubbing. No cyanosis. SKIN: Good skin turgor. Well perfused. NEUROLOGIC: Cranial nerves II through XII grossly intact. No focal or lateralizing signs. PSYCH: Appropriate affect. Alert and oriented to person, place and time. CLINICAL LABS: Reviewed. STUDIES: Nuclear study demonstrates tracer in gallbladder independently reviewed. REPORTS: Nuclear HIDA scan with ejection fraction abnormal at 7%. Findings consistent with gallbladder disorder EKG: Reviewed with normal study. Normal sinus rhythm. ASSESSMENT: 1. Severe persistent abdominal pain 2. Chronic cholecystitis with biliary dyskinesia PLAN: 1. Robotic cholecystectomy described due to persistent abdominal pain with intolerance of all foods including fatty foods. Objective - Vital Signs Vital signs: Vital Signs Temp 98 F 03/27/22 07:00 Pulse 74 03/27/22 08:00 Resp 18 03/27/22 08:00 BP 123/81 03/27/22 07:00 Pulse Ox 95 03/27/22 07:00 FiO2 Intake & Output 03/26/22 03/27/22 03/27/22 18:59 06:59 18:59 Output Total 300 Balance -300 Output: Urine 300 Other: Voiding Method Toilet Toilet Toilet # Voids 3 2 - Labs CBC & Chem 7: 03/27/22 05:55 03/27/22 05:55 Labs: Abnormal Lab Results - Last 24 Hours (Table) 03/27/22 03/27/22 Range/Units 05:55 05:55 MPV 12.4 H (9.5-12.2) fL Carbon Dioxide 28.8 H (20.0-27.5) mmol/L Anion Gap 7.20 L (10.00-18.00) mmol/L BUN 8.8 L (9.0-27.0) mg/dL BUN/Creatinine Ratio 11.00 L (12.00-20.00) Ratio
[2022-03-27] MEDS ORDERED: BUPIVACAIN-EPI 0.25%-1:200,000 30 ML VIAL SQ ONE (14:51)
[2022-03-27] MEDS: LACTATED RINGERS 1,000 ML IV SCH ×4 (15:05→23:31)
[2022-03-27] MEDS ORDERED: HEPARIN SODIUM,PORCINE 5,000 UNIT/ML 1 ML VIAL IV ONE (15:17)
[2022-03-27] MEDS ORDERED: KETOROLAC 15 MG/ML 1 ML VIAL ONE (15:21)
[2022-03-27] MEDS ORDERED: SUCCINYLCHOLINE CHLORIDE 200 MG/10 ML VIAL IV ONE (15:21)
[2022-03-27] MEDS ORDERED: GLYCOPYRROLATE 0.2 MG/ML 2 ML VIAL ONE (15:21)
[2022-03-27] MEDS ORDERED: MIDAZOLAM 2 MG/2 ML VIAL ONE (15:21)
[2022-03-27] MEDS ORDERED: NEOSTIGMINE 1 MG/ML 10 ML VIAL ONE (15:21)
[2022-03-27] MEDS ORDERED: ROCURONIUM 10 MG/ML (5 ML VIAL) IV ONE (15:21)
[2022-03-27] MEDS ORDERED: LIDOCAINE 2% INJ 20 MG/ML (2 ML VIAL) ONE (15:21)
[2022-03-27] MEDS ORDERED: PROPOFOL 10 MG/ML 20 ML VIAL IV ONE (15:21)
[2022-03-27] MEDS ORDERED: INDOCYANINE GREEN 25 MG VIAL IV ONE (15:21)
[2022-03-27] MEDS ORDERED: HYDROmorphone (PF) 1 MG/ML ONE (15:21)
[2022-03-27] MEDS ORDERED: fentaNYL (PF) 50 MCG/ML 2 ML AMP ONE (15:21)
[2022-03-27] MEDS ORDERED: PHENYLEPHRINE-0.9% NACL SYG 1,000 MCG/10 ML SYRINGE ONE (15:21)
[2022-03-27] MEDS ORDERED: METOCLOPRAMIDE 5 MG/ML 2 ML VIAL IVP PRN (17:06)
[2022-03-27] MEDS ORDERED: ONDANSETRON 4 MG/2 ML VIAL IVP PRN (17:06)
[2022-03-27] MEDS ORDERED: NALOXONE 0.4 MG/ML 1 ML VIAL IV PRN (17:06)
--- NOTE | 2022-03-27 17:06 | P.OP ---
Date of Procedure: 03/27/22 Description of Procedure: SURGEON: AYAN MC MD PREOPERATIVE DIAGNOSES: 1. Chronic cholecystitis with biliary dyskinesia 2. Right upper quadrant abdominal pain 3. Unintentional weight loss 4. History of deep venous thrombosis 5. ADD with ADHD POSTOPERATIVE DIAGNOSES: 1. Chronic cholecystitis with biliary dyskinesia 2. Right upper quadrant abdominal pain 3. Unintentional weight loss 4. History of deep venous thrombosis 5. ADD with ADHD 6. Peritoneal adhesions, left upper quadrant and left lower quadrant 7. Pericholecystic adhesions OPERATION: Robotic-assisted da Katherine Xi laparoscopic cholecystectomy, multiport with FIREFLY ESTIMATED BLOOD LOSS: 10 mL. SPECIMENS REMOVED: Gallbladder. COMPLICATIONS: None. OPERATIVE FINDINGS: 1. Moderate scarring over entire gallbladder with peritoneal adhesions, pericholecystic with features of chronic cholecystitis INDICATIONS: The patient is a 61-year-old male who presents with symptomatic gallstones. Robotic assisted laparoscopic approach was described. Benefits and risks of the procedure including but not limited to bleeding, infection, injury to the biliary tree was described. Informed consent was obtained. DESCRIPTION OF PROCEDURE: Patient was brought to the operating room, placed in supine position. After general induction, the abdomen had been prepped and draped in standard sterile fashion. The robotic da Katherine XI system was primed. After a timeout protocol was performed, the patient had been prepped and draped in standard sterile fashion. The patient was injected with indocyanine green. A 5 mm 0 degrees laparoscopic trocar entry was performed along the left upper quadrant. The abdomen insufflated to 15 mmHg pressure which was tolerated well. Diagnostic laparoscopy demonstrated no injury to bowel viscera or mesentery. The liver surface was unremarkable. Next, two 8 mm robotic ports were placed along the right upper abdomen. The camera 8-mm port was maintained along the epigastrium. Another 8 mm port was placed along the left upper abdominal wall after exchanging the 5 mm port. Please note that the ports were placed at least 10 to 15 cm away from the target anatomy of the gallbladder. The robot was docked along the left lateral abdomen. The patient was repositioned in reverse Trendelenburg position. Using a grasper for arm 3, a grasper for arm 4, including hook cautery for arm 1, the robotic system was docked and primed as described. Instruments were interchanged by the account management assistant including hook cautery, Bovie cautery and clip appliers. I had sat at the console. The gallbladder was scarred with peritoneal adhesions. Lysis of adhesions was performed to free the gallbladder from the surrounding tissues. Next attention was brought to the infundibulum and cystic structures. The infundibulum and cystic duct were dissected free from surrounding tissues. The cystic duct was isolated. FIREFLY was used to identify the cystic artery and cystic structures. A critical view of safety was obtained. Large PLASTIC clips were used throughout the entire case. Using a clip pain medicine physician, 2 clips were placed at the junction of the infundibulum and cystic duct. The cystic duct was divided between clips. Next, the cystic artery was similarly clipped and cauterized. Electro-Bovie cautery was used to remove the gallbladder from the hepatic fossa. Hemostasis was checked and found to be adequate. The robot was undocked. I re-scrubbed into the case. Using a 10 mm Endo Catch bag via the left upper quadrant incision, the specimen was removed from the abdominal cavity. All pneumoperitoneum instruments were evacuated from the abdominal cavity. The incisions were reapproximated using 4-0 Monocryl in an interrupted subcuticular fashion. Fascial defects were less than 8 mm in size. Please note along the trocar sites, local anesthetic was placed as a field block prior to insertion of all instruments. Liquid glue was applied to the skin. At the end of the procedure needle, sponge, and instrument count had been verified correct by the surgical territory manager. The patient was transferred to postanesthesia care unit in stable condition. Intraoperative films were shared with the patient's family.
[2022-03-27] MEDS ORDERED: SODIUM CHLORIDE 0.9% 1,000 ML IV ONE (17:44)
[2022-03-27] MEDS ORDERED: ACETAMINOPHEN IV (For NPO) 1,000 MG in EMPTY BAG 1 BAG IVPB ONE (18:00)
[2022-03-27] MEDS: KETOROLAC 15 MG/ML 1 ML VIAL IVP SCH ×2 (19:28→23:33)
[2022-03-28] MEDS: HYDROmorphone 0.5 MG/0.5 ML SYRINGE IVP PRN ×4 (03:51→23:17)
--- NOTE | 2022-03-28 05:39 | P.PN ---
Subjective Progress Note Date: 03/27/22 03/26/2022 This is a 61 year old male who was admitted with uncontrolled pain and abdominal pain and being closely monitored. Patient reports to continued pain with weight loss and no real appetite over the last month and getting worse over the last 2 weeks. General surgery following as patient was to undergo colonoscopy with GI although unable to tolerate the bowel prep. Multiple testings ordered and surgery suggesting hida scan to evaluate the gall bladder. Pulmonary consulted for lung findings on CT. Patient is afebrile and tolerating current diet. Will continue to monitor closely and await hida scan. No reports of shortness of breath or chest pains noted. Encouraged increased activity as tolerated. 03/27/2022 Patient is seen and evaluated in follow-up today with surgery following. HIDA scan ordered and patient is tentatively scheduled for cholecystectomy with DR. Pickett today pending hida scan report. Patient heparin held and is NPO for possible procedure. Pain currently controlled. NO reports of increased abdominal pain. Denies chest pain or shortness of breath. Patient discussed risks versus benefits and willing to proceed with surgical intervention. Will await surgical report and follow up with am labs. Review of systems: Constitutional: No reports of fatigue, no fever, or chills Cardiovascular: No reports of chest pain or palpitations Respiratory: no reports of shortness of breath and cough GI: no reports of nausea, no vomiting, or diarrhea, reports slightly improved appetite and pain is controlled : No reports of dysuria or retention Neurovascular: reports of generalized weakness All medications have been reviewed PHYSICAL EXAMINATION: GENERAL: The patient is alert and oriented x4, thin built HEENT: Pupils are round and equally reacting to light. EOMI. no scleral icterus. No conjunctival pallor. Normocephalic, atraumatic. No pharyngeal erythema. No thyromegaly. CARDIOVASCULAR: S1 and S2 muffled PULMONARY: diminished breath sounds bilaterally with some scattered rhonchi noted. ABDOMEN: soft. mildly tender. non-distended, normoactive bowel sounds. No palpable organomegaly. MUSCULOSKELETAL: No joint swelling or deformity. EXTREMITIES: No cyanosis, clubbing, or pedal edema. muscle wasting noted NEUROLOGICAL: Gross neurological examination did not reveal any focal deficits. diffuse weakness SKIN: No rashes. Assessment: Diffuse abdominal pain and weight loss, rule out malignancy Failure of outpatient treatment Status post incomplete colonoscopy Mediastinal adenopathy Family history of early age colon cancer Possible chronic cholecystitis, scheduled for cholecystectomy today 03/27 History of DVT HIstory of nicotine dependence HIstory of ADHD, ADD Significant weight loss recently GI prophylaxis DVT prophylaxis Full code Plan: Recommend to continue with current medications and management with surgery following. Patient recently unable to undergo bowel prep for outpatient colonoscopy and admitted fur further evaluation. Concerns for chronic cholecystitis with gallstones and HIDA scan ordered. Tentatively scheduled for cholecystectomy with Dr. Pickett today pending hida scan. Risks versus benefits explained about surgery including possible complications and willing to proceed with surgery. Patient is low to intermediate risk for surgery. Pulmonary on consult as well for lung findings on chest cT. Patient to continue with NPO and hold heparin for surgery later today. Recommend to increase activity as tolerated. Recommend repeat labs in am. Will await surgical report. Due to multiple complex medical issues, prognosis is guarded. The impression and plan of care has been dictated by Radha Ramos, Nurse Practitioner as directed. Dr. Garth MD I have performed a history and examination and MDM of this patient, discussed the same with the dictator, and agree with the dictator's assessment and plan as written ,documented as a scribe. Based on total visit time, I have performed more than 50% of the visit. Objective - Vital Signs Vital signs: Vital Signs Temp 98 F 03/27/22 07:00 Pulse 74 03/27/22 08:00 Resp 18 03/27/22 08:00 BP 123/81 03/27/22 07:00 Pulse Ox 95 03/27/22 07:00 FiO2 Intake & Output 03/26/22 03/27/22 03/27/22 18:59 06:59 18:59 Output Total 300 Balance -300 Output: Urine 300 Other: Voiding Method Toilet Toilet Toilet # Voids 3 2 - Labs CBC & Chem 7: 03/27/22 05:55 03/27/22 05:55 Labs: Abnormal Lab Results - Last 24 Hours (Table) 03/27/22 03/27/22 Range/Units 05:55 05:55 MPV 12.4 H (9.5-12.2) fL Carbon Dioxide 28.8 H (20.0-27.5) mmol/L Anion Gap 7.20 L (10.00-18.00) mmol/L BUN 8.8 L (9.0-27.0) mg/dL BUN/Creatinine Ratio 11.00 L (12.00-20.00) Ratio
[2022-03-28] MEDS: KETOROLAC 15 MG/ML 1 ML VIAL IVP SCH ×4 (05:50→23:16)
[2022-03-28] MEDS: HYDROcodone/APAP 5-325MG 1 EACH TAB PO PRN ×3 (05:52→20:29)
[2022-03-28] MEDS ORDERED: HYDROmorphone 0.5 MG/0.5 ML SYRINGE IVP PRN (07:00)
--- NOTE | 2022-03-28 08:02 | P.PN ---
Subjective Progress Note Date: 03/28/22 This is a 61-year-old white male with one month history of abdominal pain. Patient describes the pain as a bandlike sensation right upper quadrant and left upper quadrant with burning sensation along the left flank. Patient had extensive workup for his abdominal pain, and so far the workup has been negative for malignancy. Patient also describes significant intolerance to certain foods, CT of the abdomen and pelvis showed moderate redundant sigmoid colon including hepatic hepatic flexures, questionable internal hernia of the left upper quadrant. HIDA scan is pending. During the workup the patient had a CT of the chest clearly showed COPD, there is also evidence of mediastinal and right bronchial adenopathy with nonspecific findings of a small noncalcified nodule in the right upper lobe/irregular pleural thickening/posterior right upper lobe. Likely scarring. However considering the abnormality in the mediastinum, this consult was initiated. Patient has no active pulmonary symptoms today. I did recommend that the patient may eventually need a PET scan on outpatient basis, and if that area is abnormal on the PET scan, may have to be considered for EBUS bronchoscopy pulmonary-[place], the patient has no active pulmonary symptoms whatsoever The patient is seen today 03/27/2022 in follow-up on the regular medical floor. He is currently resting comfortably in bed. Awake and alert in no acute distress. No shortness of breath, cough or congestion. Maintaining O2 saturations in the 90s on room air. He still having ongoing issues with abdominal discomfort. Plan is for possible cholecystectomy today per surgical services. No new labs today. Continued on cefazolin. Heparin for DVT prophylaxis. 0.9 normal saying at 75 ML's per hour. The patient is seen today 03/28/2022 in follow-up on the regular medical floor. He is awake and alert in no acute distress. Continues to maintain good O2 saturations in the 90s on room air. He did undergo a laparoscopic cholecystectomy yesterday.sites are clean dry well approximated. 0.9% normal saline at 75 ML's per hour. He is utilizing his incentive spirometer. White count 4.9. Hemoglobin 14.4. Sodium 137. Potassium 4.2. BUN 9. Creatinine 0.8. Amylase 56. Lipase 59. Objective - Vital Signs Vital signs: Vital Signs Temp 98.7 F 03/28/22 03:09 Pulse 75 03/28/22 03:09 Resp 17 03/28/22 03:09 BP 140/82 03/28/22 03:09 Pulse Ox 95 03/28/22 03:09 FiO2 Intake & Output 03/27/22 03/28/22 03/28/22 18:59 06:59 18:59 Intake Total 1075 Output Total 305 Balance 770 Intake: IV 1075 Output: Urine 300 Estimated Blood Loss 5 Other: Voiding Method Toilet Toilet # Voids 4 2 - Exam GENERAL EXAM: Alert, pleasant 61-year-old male, on room air, comfortable in no apparent distress. HEAD: Normocephalic. EYES: Normal reaction of pupils, equal size. NOSE: Clear with pink turbinates. THROAT: No erythema or exudates. NECK: No masses, no JVD. CHEST: No chest wall deformity. LUNGS: Equal air entry with no crackles, wheeze, rhonchi or dullness. CVS: S1 and S2 normal with no audible murmur, regular rhythm. ABDOMEN: Surgical sites clean dry well approximated.Tender to palpation. Normal bowel sounds, no guarding or rigidity. SPINE: No scoliosis or deformity SKIN: No rashes CENTRAL NERVOUS SYSTEM: No focal deficits, tone is normal in all 4 extremities. EXTREMITIES: There is no peripheral edema. No clubbing, no cyanosis. Peripheral pulses are intact. - Labs CBC & Chem 7: 03/27/22 05:55 03/27/22 05:55 Labs: Abnormal Lab Results - Last 24 Hours (Table) 03/27/22 03/27/22 Range/Units 05:55 05:55 MPV 12.4 H (9.5-12.2) fL Carbon Dioxide 28.8 H (20.0-27.5) mmol/L Anion Gap 7.20 L (10.00-18.00) mmol/L BUN 8.8 L (9.0-27.0) mg/dL BUN/Creatinine Ratio 11.00 L (12.00-20.00) Ratio Assessment and Plan Assessment: Chronic abdominal pain, suspected chronic cholecystitis. Status post laparos copic cholecystectomy 03/27/2022. Abnormal CT of the chest, strongly recommend close follow-up patient will need outpatient PET scan post discharge Tobacco dependence syndrome Possible chronic cholecystitis Family history of colon cancer Plan: The patient was seen and evaluated Stable and on room air Cleared for discharge from the pulmonary standpoint Patient is requesting EBUS procedure after the first of the year He will follow-up in the office for scheduling of the PET scan and EBUS bro nchoscopy I have personally seen and examined the patient, performed the documentation and the assessment and plan as written. Number of minutes spent on the visit: 10.
[2022-03-28 09:14] LABS: Basophils # (A) 0.04 X 10*3/uL (0.00-0.10); Basophils % (A) 0.6 %; Eosinophils # (A) 0.04 X 10*3/uL (0.04-0.35); Eosinophils % (A) 0.6 %; HCT 39.1 % (39.6-50.0); HGB 13.2 g/dL (13.0-17.0); Immature Grans, Automated 0.2 %; MCH 29.8 pg (27.0-32.0); MCHC 33.8 g/dL (32.0-37.0); MCV 88.3 fL (80.0-97.0); Mean Platelet Volume 12.4 fL (9.5-12.2); Monocytes # (A) 0.45 X 10*3/uL (0.20-1.00); Monocytes % (A) 7.2 %; NRBC Per 100 WBC 0 /100 WBCS (0.0-0.0); Neutrophils # (A) 4.22 X 10*3/uL (1.80-7.70); Neutrophils % (A) 67.4 %; Platelet Count 154 X 10*3/uL (140-440); RBC 4.43 X 10*6/uL (4.40-5.60); RDW 12.5 % (11.5-14.5); WBC 6.26 X 10*3/uL (4.50-10.00)
[2022-03-28 09:36] LABS: Magnesium 2.3 mg/dL (1.5-2.4)
[2022-03-28] MEDS: PANTOPRAZOLE 40 MG/10 ML VIAL IVP SCH ×2 (09:42→20:28)
[2022-03-28] MEDS: HEPARIN SODIUM,PORCINE/PF 5,000 UNIT/0.5 ML SYRINGE SQ SCH ×2 (09:44→20:29)
[2022-03-28 09:56] LABS: African American GFR (CKD) 112.5 (60.0-200.0); Anion Gap 11.3 mmol/L (10.00-18.00); BUN/Creat Ratio 18.63 Ratio (12.00-20.00); Blood Urea Nitrogen 14.9 mg/dL (9.0-27.0); Calcium 8.7 mg/dL (8.7-10.3); Carbon Dioxide 22.7 mmol/L (20.0-27.5); Non-African American GFR(CKD) 97.1 (60.0-200.0); Potassium 4.5 mmol/L (3.5-5.5)
[2022-03-28] MEDS: LACTATED RINGERS 1,000 ML IV SCH ×2 (12:12→23:21)
[2022-03-28] MEDS: SODIUM CHLORIDE 0.9% 1,000 ML IV SCH ×2 (12:12→23:20)
--- NOTE | 2022-03-28 14:10 | P.PN ---
Subjective Progress Note Date: 03/28/22 CHIEF COMPLAINT: Abdominal pain HISTORY OF PRESENT ILLNESS: Patient is postop day #1 status post robotic- assisted laparoscopic cholecystectomy. Patient reports improvement in his overall abdominal pain. He reports this pain feels different and feels more of a surgical pain. His pain is tolerable. He denies any nausea or vomiting. He reports actually eating regular food that he has not been able to do in a while. He is having flatus. He has been up and ambulating. Denies any difficulty urinating. Afebrile. WBC is 6.26 Hgb 13.2 that's 154 sodium is 136 potassium 4.5 creatinine 0.8 PHYSICAL EXAM: VITAL SIGNS: Reviewed GENERAL: Well-developed in no acute distress. HEENT: No sclera icterus. Extraocular movements grossly intact. Moist buccal mucosa. Head is atraumatic, normocephalic. Hears conversational speech. No nasal drainage. NECK: Supple without lymphadenopathy. CHEST: Non-labored respirations and equal bilateral excursions. CARDIOVASCULAR: Palpable 2+ radial pulses. ABDOMEN: Soft. Nondistended. Incision sites clean dry and intact MUSCULOSKELETAL: No clubbing or cyanosis. NEUROLOGIC: No focal or lateralizing signs. Cranial nerves II through XII grossly intact. PSYCH: Appropriate affect. Alert and oriented to person, place and time. SKIN: Well perfused. Good skin turgor. ASSESSMENT: 1. Symptomatic gallstone 2. Right upper quadrant abdominal pain 3. Chronic cholecystitis 4. Peritoneal adhesions, right upper quadrant PLAN: -Patient can be discharged from surgical standpoint when medically cleared -Continue pain management -Continue supportive care -Encouraged patient ambulates -Continue low-fat diet -Encouraged patient to use incentive spirometer Physician Photographer'S Assistant note has been reviewed by physician. Signing provider agrees with the documented findings, assessment, and plan of care. Objective - Vital Signs Vital signs: Vital Signs Temp 98 F 03/28/22 12:46 Pulse 76 03/28/22 12:46 Resp 14 03/28/22 12:46 BP 146/84 03/28/22 12:46 Pulse Ox 96 03/28/22 12:46 FiO2 Intake & Output 03/27/22 03/28/22 03/28/22 18:59 06:59 18:59 Intake Total 1075 Output Total 305 Balance 770 Intake: IV 1075 Output: Urine 300 Estimated Blood Loss 5 Other: Voiding Method Toilet Toilet # Voids 4 2 - Labs CBC & Chem 7: 03/28/22 05:42 03/28/22 05:42 Labs: Abnormal Lab Results - Last 24 Hours (Table) 03/28/22 Range/Units 05:42 Hct 39.1 L (39.6-50.0) % MPV 12.4 H (9.5-12.2) fL
[2022-03-29] MEDS: HYDROcodone/APAP 5-325MG 1 EACH TAB PO PRN ×2 (04:40→10:17)
--- NOTE | 2022-03-29 05:54 | P.PN ---
Subjective Progress Note Date: 03/28/22 03/26/2022 This is a 61 year old male who was admitted with uncontrolled pain and abdominal pain and being closely monitored. Patient reports to continued pain with weight loss and no real appetite over the last month and getting worse over the last 2 weeks. General surgery following as patient was to undergo colonoscopy with GI although unable to tolerate the bowel prep. Multiple testings ordered and surgery suggesting hida scan to evaluate the gall bladder. Pulmonary consulted for lung findings on CT. Patient is afebrile and tolerating current diet. Will continue to monitor closely and await hida scan. No reports of shortness of breath or chest pains noted. Encouraged increased activity as tolerated. 03/27/2022 Patient is seen and evaluated in follow-up today with surgery following. HIDA scan ordered and patient is tentatively scheduled for cholecystectomy with DR. Pickett today pending hida scan report. Patient heparin held and is NPO for possible procedure. Pain currently controlled. NO reports of increased abdominal pain. Denies chest pain or shortness of breath. Patient discussed risks versus benefits and willing to proceed with surgical intervention. Will await surgical report and follow up with am labs. 03/28/2022 Patient is seen this morning and is post laparoscopic cholecystectomy with DR. Pickett. Patient reports he has abdominal tenderness from the surgery. Reports improvement in his previous abdominal pain. Started on regular diet and tolerating. Reports to passing gas but no BM. Encouraged incentive spirometer at least 10 times per hour while awake. Encouraged increased activity as tolerated. Afebrile and denies chest pain or shortness of breath. Patient has been cleared by surgery for discharge. Pulmonary evaluated the patient and will follow up outpatient with further testing and possible PET scan. Review of systems: Constitutional: No reports of fatigue, no fever, or chills Cardiovascular: No reports of chest pain or palpitations Respiratory: no reports of shortness of breath and cough GI: no reports of nausea, no vomiting, or diarrhea, reports slightly improved appetite and pain is controlled, reports passing gas : No reports of dysuria or retention Neurovascular: reports of generalized weakness All medications have been reviewed PHYSICAL EXAMINATION: GENERAL: The patient is alert and oriented x4, thin built HEENT: Pupils are round and equally reacting to light. EOMI. no scleral icterus. No conjunctival pallor. Normocephalic, atraumatic. No pharyngeal erythema. No thyromegaly. CARDIOVASCULAR: S1 and S2 muffled PULMONARY: diminished breath sounds bilaterally with some scattered rhonchi noted. ABDOMEN: soft. mildly tender. non-distended, normoactive bowel sounds. No palpable organomegaly. surgical sites dry and glue noted MUSCULOSKELETAL: No joint swelling or deformity. EXTREMITIES: No cyanosis, clubbing, or pedal edema. muscle wasting noted NEUROLOGICAL: Gross neurological examination did not reveal any focal deficits. diffuse weakness SKIN: No rashes. Assessment: Diffuse abdominal pain and weight loss, rule out malignancy Failure of outpatient treatment Status post incomplete colonoscopy Mediastinal adenopathy, will need outpatient follow up with pulmonary and poss PET scan Family history of early age colon cancer Possible chronic cholecystitis, post cholecystectomy 03/27 History of DVT HIstory of nicotine dependence HIstory of ADHD, ADD Significant weight loss recently GI prophylaxis DVT prophylaxis Full code Plan: Recommend to continue with current medications and management with surgery following. Patient is post cholecystectomy with Dr. Pickett and reports to feeling sore, but not like his previous abdominal pain. Pulmonary evaluated patient as well for lung findings on chest cT and will need outpatient follow up with possible PET scan. Patient tolerating diet. Medically stable. Will monitor overnight for diet tolerance and pain control with plans for discharge in 24 hours. Recommend to increase activity as tolerated. Due to multiple complex medical issues, prognosis is guarded. The impression and plan of care has been dictated by Radha Ramos, Nurse Practitioner as directed. Dr. Garth MD I have performed a history and examination and MDM of this patient, discussed the same with the dictator, and agree with the dictator's assessment and plan as written ,documented as a scribe. Based on total visit time, I have performed more than 50% of the visit. Objective - Vital Signs Vital signs: Vital Signs Temp 98.1 F 03/29/22 02:47 Pulse 82 03/29/22 02:47 Resp 17 03/29/22 02:47 BP 156/87 03/29/22 02:47 Pulse Ox 95 03/29/22 02:47 FiO2 Intake & Output 03/28/22 03/28/22 03/29/22 06:59 18:59 06:59 Intake Total 240 Balance 240 Intake: Oral 240 Other: Voiding Method Toilet Toilet # Voids 2 2 2 - Labs CBC & Chem 7: 03/28/22 05:42 03/28/22 05:42 Labs: Abnormal Lab Results - Last 24 Hours (Table) 03/28/22 Range/Units 05:42 Hct 39.1 L (39.6-50.0) % MPV 12.4 H (9.5-12.2) fL
[2022-03-29] MEDS: HYDROmorphone 0.5 MG/0.5 ML SYRINGE IVP PRN (06:28)
[2022-03-29] MEDS: KETOROLAC 15 MG/ML 1 ML VIAL IVP SCH (06:28)
[2022-03-29 07:49] VITALS: BP 143/84; PULSE 65; RESP 16; TEMP 98.3
[2022-03-29] MEDS: HEPARIN SODIUM,PORCINE/PF 5,000 UNIT/0.5 ML SYRINGE SQ SCH (08:58)
[2022-03-29] MEDS: PANTOPRAZOLE 40 MG/10 ML VIAL IVP SCH (09:01)
--- NOTE | 2022-03-29 11:26 | P.PN ---
Subjective Progress Note Date: 03/29/22 This is a 61-year-old white male with one month history of abdominal pain. Patient describes the pain as a bandlike sensation right upper quadrant and left upper quadrant with burning sensation along the left flank. Patient had extensive workup for his abdominal pain, and so far the workup has been negative for malignancy. Patient also describes significant intolerance to certain foods, CT of the abdomen and pelvis showed moderate redundant sigmoid colon including hepatic hepatic flexures, questionable internal hernia of the left upper quadrant. HIDA scan is pending. During the workup the patient had a CT of the chest clearly showed COPD, there is also evidence of mediastinal and right bronchial adenopathy with nonspecific findings of a small noncalcified nodule in the right upper lobe/irregular pleural thickening/posterior right upper lobe. Likely scarring. However considering the abnormality in the mediastinum, this consult was initiated. Patient has no active pulmonary symptoms today. I did recommend that the patient may eventually need a PET scan on outpatient basis, and if that area is abnormal on the PET scan, may have to be considered for EBUS bronchoscopy pulmonary-[place], the patient has no active pulmonary symptoms whatsoever The patient is seen today 03/27/2022 in follow-up on the regular medical floor. He is currently resting comfortably in bed. Awake and alert in no acute distress. No shortness of breath, cough or congestion. Maintaining O2 saturations in the 90s on room air. He still having ongoing issues with abdominal discomfort. Plan is for possible cholecystectomy today per surgical services. No new labs today. Continued on cefazolin. Heparin for DVT prophylaxis. 0.9 normal saying at 75 ML's per hour. The patient is seen today 03/28/2022 in follow-up on the regular medical floor. He is awake and alert in no acute distress. Continues to maintain good O2 saturations in the 90s on room air. He did undergo a laparoscopic cholecystectomy yesterday.sites are clean dry well approximated. 0.9% normal saline at 75 ML's per hour. He is utilizing his incentive spirometer. White count 4.9. Hemoglobin 14.4. Sodium 137. Potassium 4.2. BUN 9. Creatinine 0.8. Amylase 56. Lipase 59. The patient is seen today 03/29/2022 in follow-up on the regular medical floor. He is up ambulating in his room. Maintaining good O2 saturations in the 90s on room air. Pain is adequately controlled. Tolerating a low-fat diet. Normal saline at 75 ML's per hour. Objective - Vital Signs Vital signs: Vital Signs Temp 98.3 F 03/29/22 07:00 Pulse 65 03/29/22 07:00 Resp 16 03/29/22 07:00 BP 143/84 03/29/22 07:00 Pulse Ox 95 03/29/22 07:00 FiO2 Intake & Output 03/28/22 03/29/22 03/29/22 18:59 06:59 18:59 Intake Total 240 118 Balance 240 118 Intake: Oral 240 118 Other: Voiding Method Toilet # Voids 2 2 - Exam GENERAL EXAM: Alert, pleasant 61-year-old male, on room air, comfortable in no apparent distress. HEAD: Normocephalic. EYES: Normal reaction of pupils, equal size. NOSE: Clear with pink turbinates. THROAT: No erythema or exudates. NECK: No masses, no JVD. CHEST: No chest wall deformity. LUNGS: Equal air entry with no crackles, wheeze, rhonchi or dullness. CVS: S1 and S2 normal with no audible murmur, regular rhythm. ABDOMEN: Surgical sites clean dry well approximated.Tender to palpation. Normal bowel sounds, no guarding or rigidity. SPINE: No scoliosis or deformity SKIN: No rashes CENTRAL NERVOUS SYSTEM: No focal deficits, tone is normal in all 4 extremities. EXTREMITIES: There is no peripheral edema. No clubbing, no cyanosis. Peripheral pulses are intact. - Labs CBC & Chem 7: 03/28/22 05:42 03/28/22 05:42 Assessment and Plan Assessment: Chronic abdominal pain, suspected chronic cholecystitis. Status post laparoscopic cholecystectomy 03/27/2022. Abnormal CT of the chest, strongly recommend close follow-up patient will need outpatient PET scan post discharge Tobacco dependence syndrome Possible chronic cholecystitis Family history of colon cancer Plan: The patient was seen and evaluated Stable and on room air Cleared for discharge from the pulmonary standpoint Patient is requesting EBUS procedure no to be done next week We will attempt to get him scheduled I have personally seen and examined the patient, performed the documentation and the assessment and plan as written. Number of minutes spent on the visit: 10.
--- NOTE | 2022-03-29 13:44 | P.PN ---
Subjective Progress Note Date: 03/29/22 CHIEF COMPLAINT: Abdominal pain HISTORY OF PRESENT ILLNESS: Patient is postop day #2 status post robotic- assisted laparoscopic cholecystectomy. Patient continues to feel better. He does report pain at his incision sites which is tolerable. He is having flatus. Denies any nausea vomiting. No bowel movement. Tolerating diet. He has been up and ambulating. He wants to be discharged today. Afebrile. WBC 6.26 Hgb 13.2 platelets 154 PHYSICAL EXAM: VITAL SIGNS: Reviewed GENERAL: Well-developed in no acute distress. HEENT: No sclera icterus. Extraocular movements grossly intact. Moist buccal mucosa. Head is atraumatic, normocephalic. Hears conversational speech. No nasal drainage. NECK: Supple without lymphadenopathy. CHEST: Non-labored respirations and equal bilateral excursions. CARDIOVASCULAR: Palpable 2+ radial pulses. ABDOMEN: Soft. Nondistended. Incision sites clean dry and intact MUSCULOSKELETAL: No clubbing or cyanosis. NEUROLOGIC: No focal or lateralizing signs. Cranial nerves II through XII grossly intact. PSYCH: Appropriate affect. Alert and oriented to person, place and time. SKIN: Well perfused. Good skin turgor. ASSESSMENT: 1. Symptomatic gallstone 2. Right upper quadrant abdominal pain 3. Chronic cholecystitis 4. Peritoneal adhesions, right upper quadrant PLAN: -Patient can be discharged from surgical standpoint when medically cleared -Continue pain management -Continue supportive care -Recommend stool softener at discharge -Encouraged patient ambulates -Continue low-fat diet -Encouraged patient to use incentive spirometer Physician Wheel Tuner note has been reviewed by physician. Signing provider agrees with the documented findings, assessment, and plan of care. Objective - Vital Signs Vital signs: Vital Signs Temp 98.3 F 03/29/22 07:00 Pulse 65 03/29/22 07:00 Resp 16 03/29/22 07:00 BP 143/84 03/29/22 07:00 Pulse Ox 95 03/29/22 07:00 FiO2 Intake & Output 03/28/22 03/29/22 03/29/22 18:59 06:59 18:59 Intake Total 240 118 Balance 240 118 Intake: Oral 240 118 Other: Voiding Method Toilet # Voids 2 2 - Labs CBC & Chem 7: 03/28/22 05:42 03/28/22 05:42
--- NOTE | 2022-03-29 17:44 | P.PN ---
Subjective Progress Note Date: 03/29/22 Principal diagnosis: Abdominal pain In follow-up today patient states he is having some mild discomfort from his laparoscopic insertion sites from his gallbladder removal but, this is getting better. He denies any difficulty swallowing or painful swallowing. No fevers, shortness of breath, unusual cough. Patient is independently ambulatory. Objective - Vital Signs Vital signs: Vital Signs Temp 98.3 F 03/29/22 07:00 Pulse 65 03/29/22 07:00 Resp 16 03/29/22 07:00 BP 143/84 03/29/22 07:00 Pulse Ox 95 03/29/22 07:00 FiO2 Intake & Output 03/28/22 03/29/22 03/29/22 18:59 06:59 18:59 Intake Total 240 118 Balance 240 118 Intake: Oral 240 118 Other: Voiding Method Toilet # Voids 2 2 - Constitutional General appearance: Present: cooperative, no acute distress, thin - EENT Eyes: Present: anicteric sclerae, EOMI ENT: Present: hearing grossly normal - Respiratory Respiratory: bilateral: CTA - Cardiovascular Rhythm: regular Heart sounds: normal: S1, S2 Abnormal Heart Sounds: Absent: systolic murmur, diastolic murmur, rub, S3 Gallop, S4 Gallop, click, other - Peripheral edema leg Peripheral Edema: bilateral: None - Gastrointestinal General gastrointestinal: Present: normal bowel sounds, soft - Integumentary Integumentary: Present: normal - Neurologic Neurologic: Present: CNII-XII intact - Musculoskeletal Musculoskeletal: Present: strength equal bilaterally - Psychiatric Psychiatric: Present: A&O x's 3, appropriate affect, intact judgment & insight - Labs CBC & Chem 7: 03/28/22 05:42 03/28/22 05:42 Assessment and Plan (1) Abdominal pain Status: Acute Priority: High Code(s): R10.9 - UNSPECIFIED ABDOMINAL PAIN SNOMED Code(s): 29372275 (2) Mediastinal lymphadenopathy Status: Acute Priority: High Code(s): R59.0 - LOCALIZED ENLARGED LYMPH NODES SNOMED Code(s): 45114550 Plan: Patient has had EGD, biopsies were negative for any malignancy. Patient is status post laparoscopic cholecystectomy, gallbladder pathology returned negative for any malignancy. Nuclear medicine bone scan was negative for any malignant lesions. Mediastinal lymphadenopathy. After review of the chart, Pulmonary is planning for a PET scan. If any of the lymphadenopathy is abnormally metabolically active, patient will be having a biopsy of the same. Based on pathology, patient may need to be referred back to Oncology. Discussed this with the patient, patient verbalized that was his understanding of the plan of care as well. Patient was given contact information for the office. We will look for results of imaging and biopsies.
== END 2022-03-29 12:40 | disposition home or self-care (01) | DRG 418 ==
LOC: ORWHC2ENDO 06:49 → 6NMEDSUR 09:41 → OBSVTOIN 03-27 09:41 → 6NMEDSUR 03-29 00:24
PROVIDERS: ADMIT Hospitalist; ATTEND Hospitalist
PROC: 0DB48ZX Excision of Esophagogastric Junction, Via Natural or Artificial Opening Endoscopic, Diagnostic (ICD-10-PCS; 2022-03-24)
PROC: 0DB78ZX Excision of Stomach, Pylorus, Via Natural or Artificial Opening Endoscopic, Diagnostic (ICD-10-PCS; 2022-03-24)
PROC: 0DJD8ZZ Inspection of Lower Intestinal Tract, Via Natural or Artificial Opening Endoscopic (ICD-10-PCS; 2022-03-24)
PROC: 8E0W4CZ Robotic Assisted Procedure of Trunk Region, Percutaneous Endoscopic Approach (ICD-10-PCS; 2022-03-27)
PROC: 0FT44ZZ Resection of Gallbladder, Percutaneous Endoscopic Approach (ICD-10-PCS; principal; 2022-03-27 09:30)
DX: K81.1 Chronic cholecystitis (principal); Q43.8 Other specified congenital malformations of intestine; R63.4 Abnormal weight loss; J44.9 Chronic obstructive pulmonary disease, unspecified; K21.9 Gastro-esophageal reflux disease without esophagitis; K22.70 Barrett's esophagus without dysplasia; K29.50 Unspecified chronic gastritis without bleeding; K44.9 Diaphragmatic hernia without obstruction or gangrene; K82.8 Other specified diseases of gallbladder; F90.9 Attention-deficit hyperactivity disorder, unspecified type; K66.0 Peritoneal adhesions (postprocedural) (postinfection); R91.1 Solitary pulmonary nodule; G89.29 Other chronic pain; R59.0 Localized enlarged lymph nodes; Z86.010 Personal history of colon polyps; Z86.718 Personal history of other venous thrombosis and embolism; Z80.0 Family history of malignant neoplasm of digestive organs; Z80.8 Family history of malignant neoplasm of other organs or systems; Z91.012 Allergy to eggs; Z91.018 Allergy to other foods; Z87.891 Personal history of nicotine dependence; Z68.20 Body mass index [BMI] 20.0-20.9, adult
CPT/HCPCS: 43239; 45378; 70450; 71260; 72158; 76700; 78227; 78306; 80048; 80053; 81001; 82105; 82150; 82378; 83690; 83735; 84153; 85025; 85652; 86140; 88304; 88305; 93306